=== PATIENT | female | born 1960 | race Caucasian/White ===

== ENCOUNTER 2018-04-06 19:12 | Inpatient (IN) | payer OTHER ==
[~2018-04-06] VITALS: Ht 157.5 cm; Wt 83.7 kg
--- NOTE | 2018-04-06 20:12 | PHYS DOC ---
Past Medical History Past Medical History: No Pertinent History Past Surgical History: Additional Past Surgical Histo: HERNIA Additional Information: QUIT 2016 Alcohol Use: None Drug Use: None Adult General Chief Complaint Chief Complaint: SHORTNESS OF BREATH HPI HPI Patient is a 57 year old female who presents with SOB Patient has been ill with upper respiratory infection over the last 3 weeks. She is given a Z-Benoit 2 weeks ago with some improvement, but this past week she' s had recurrent cough and shortness breath. She's had increased use of her inhaler over the past week. Her shortness breath got worse this afternoon and she came to the emergency permit for further evaluation. She denies any chest pain or fevers. Review of Systems Review of Systems Constitutional: Denies fever or chills Eyes: Denies change in visual acuity, redness, or eye pain HENT: Denies nasal congestion or sore throat Respiratory: With cough and shortness of breath Cardiovascular: Denies chest pain or palpitations GI: Denies abdominal pain, nausea, vomiting, bloody stools or diarrhea : Denies dysuria or hematuria Musculoskeletal: Denies back pain or joint pain Integument: Denies rash or skin lesions Neurologic: Denies headache, focal weakness or sensory changes Endocrine: Denies polyuria or polydipsia All other systems were reviewed and found to be within normal limits, except as documented in this note. Current Medications Current Medications Current Medications Medications (Trade) Dose Ordered Sig/Carlos Start Time Stop Time Status Last Admin Dose Admin Albuterol/ Ipratropium (Duoneb) 3 ml 1X ONCE 04/06/18 20:15 04/06/18 20:16 DC 04/06/18 20:34 3 ML Info (CONTRAST GIVEN -- Rx MONITORING) 1 each PRN DAILY PRN 04/06/18 22:00 04/08/18 21:59 Iohexol (Omnipaque 300 Mg/ml) 75 ml 1X ONCE 04/06/18 22:15 04/06/18 22:16 DC 04/06/18 22:06 75 ML Prednisone (Prednisone) 60 mg 1X ONCE 04/06/18 20:15 04/06/18 20:16 DC 04/06/18 20:20 60 MG Allergies Allergies Allergies Coded Allergies Type Severity Reaction Last Updated Verified codeine Allergy Severe 04/06/18 Yes Physical Exam Physical Exam Constitutional: Well developed, well nourished, no acute distress, non-toxic appearance. HENT: Normocephalic, atraumatic, bilateral external ears normal, oropharynx moist, no oral exudates, nose normal. Eyes: PERRLA, EOMI, conjunctiva normal, no discharge. Neck: Normal range of motion, no tenderness, supple, no stridor. Cardiovascular:Heart rate regular rhythm, no murmur Lungs & Thorax: Bilateral breath sounds with wheezing bilaterally and decreased BS at the bases Abdomen: Bowel sounds normal, soft, no tenderness, no masses, no pulsatile masses. Skin: Warm, dry, no erythema, no rash. Back: No tenderness, no CVA tenderness. Extremities: No tenderness, no cyanosis, no clubbing, ROM intact, no edema. Neurologic: Alert and oriented X 3, normal motor function, normal sensory function, no focal deficits noted. Psychologic: Affect normal, judgement normal, mood normal. Current Patient Data Vital Signs Vital Signs Date Time Temp Pulse Resp B/P (MAP) Pulse Ox O2 Delivery O2 Flow Rate FiO2 04/06/18 21:30 100 21 162/81 (108) 94 Room Air 04/06/18 19:50 98.0 98.0 Lab Values Laboratory Tests Test 04/06/18 19:47 04/06/18 20:17 04/06/18 21:11 Urine Collection Type Unknown Urine Color Yellow Urine Clarity Clear Urine pH 6.0 Urine Specific [place] 1.025 Urine Protein Negative mg/dL (NEG-TRACE) Urine Glucose (UA) >=1000 mg/dL (NEG) Urine Ketones (Stick) Negative mg/dL (NEG) Urine Blood Negative (NEG) Urine Nitrite Negative (NEG) Urine Bilirubin Negative (NEG) Urine Urobilinogen Dipstick 0.2 mg/dL (0.2 mg/dL) Urine Leukocyte Esterase Trace (NEG) Urine RBC 0 /HPF (0-2) Urine WBC 5-10 /HPF (0-4) Urine Squamous Epithelial Cells Few /LPF Urine Bacteria 0 /HPF (0-FEW) White Blood Count 6.8 x10^3/uL (4.0-11.0) Red Blood Count 4.34 x10^6/uL (3.50-5.40) Hemoglobin 13.4 g/dL (12.0-15.5) Hematocrit 39.0 % (36.0-47.0) Mean Corpuscular Volume 90 fL (79-100) Mean Corpuscular Hemoglobin 31 pg (25-35) Mean Corpuscular Hemoglobin Concent 34 g/dL (31-37) Red Cell Distribution Width 13.6 % (11.5-14.5) Platelet Count 245 x10^3/uL (140-400) Neutrophils (%) (Auto) 60 % (31-73) Lymphocytes (%) (Auto) 32 % (24-48) Monocytes (%) (Auto) 5 % (0-9) Eosinophils (%) (Auto) 2 % (0-3) Basophils (%) (Auto) 1 % (0-3) Neutrophils # (Auto) 4.1 x10^3uL (1.8-7.7) Lymphocytes # (Auto) 2.1 x10^3/uL (1.0-4.8) Monocytes # (Auto) 0.4 x10^3/uL (0.0-1.1) Eosinophils # (Auto) 0.1 x10^3/uL (0.0-0.7) Basophils # (Auto) 0.1 x10^3/uL (0.0-0.2) D-Dimer (Katerina) 0.59 ug/mlFEU (0.00-0.50) H Sodium Level 138 mmol/L (136-145) Potassium Level 3.6 mmol/L (3.5-5.1) Chloride Level 102 mmol/L (98-107) Carbon Dioxide Level 28 mmol/L (21-32) Anion Gap 8 (6-14) Blood Urea Nitrogen 10 mg/dL (7-20) Creatinine 0.7 mg/dL (0.6-1.0) Estimated GFR (Cockcroft-Gault) 86.2 Glucose Level 306 mg/dL (70-99) H Calcium Level 8.9 mg/dL (8.5-10.1) Troponin I Quantitative < 0.017 ng/mL (0.000-0.055) JO-Icg-O-Type Natriuretic Peptide 2433 pg/mL (0-124) H Laboratory Tests 04/06/18 20:17 Laboratory Tests 04/06/18 21:11 EKG EKG ECG 19:48 ST @104 with LBBB Radiology/Procedures Radiology/Procedures [facility] [address] [place] [address] IMAGING REPORT Signed PATIENT: JACQUELYN GUEVARA ACCOUNT: [id number] : 1960 LOCATION: ER AGE: 57 SEX: F EXAM STATUS: REG ER ORD. PHYSICIAN: TRAY SUTTON MD REASON: SOB PROCEDURE: CHEST AP ONLY EXAM: CHEST 1 VIEW. HISTORY: Shortness of breath. COMPARISON: None. FINDINGS: A frontal view of the chest is obtained. There are small bilateral pleural effusions with bibasilar atelectasis and mild pulmonary edema. There is no pneumothorax. The heart is mildly enlarged. IMPRESSION: 1. Mild cardiomegaly. Small bilateral pleural effusions. Mild pulmonary edema. Electronically signed by: Nicole Segovia MD (04/06/2018 10:14 PM) [facility] DICTATED and SIGNED BY: MORGAN SEGOVIA MD DATE: 04/06/18 221 [facility] [address] [facility] [place] [address] IMAGING REPORT Signed PATIENT: JACQUELYN GUEVARA ACCOUNT: [id number] : 1960 LOCATION: ER AGE: 57 SEX: F EXAM STATUS: REG ER ORD. PHYSICIAN: TRAY SUTTON MD REASON: SOB PROCEDURE: CT ANGIOGRAPHY CHEST EXAM: CT ANGIOGRAPHY OF THE CHEST WITH AND WITHOUT INTRAVENOUS CONTRAST. HISTORY: Shortness of breath. TECHNIQUE: Computed tomographic angiography of the chest was performed before and after the intravenous administration of 75 mL Omnipaque 300. 3-D maximum intensity projections were also performed. COMPARISON: None. FINDINGS: Images of the upper abdomen reveal mild splenomegaly at 14.4 cm. Bone windows reveal no suspicious lesions. No pulmonary emboli are identified. The main pulmonary artery is mildly enlarged at 3.1 cm. There is no aortic dissection or aneurysm. A lateral aortic lymph node measures 1.6 x 1.1 cm. There are no other clearly enlarged mediastinal, hilar or axillary lymph nodes. The left ventricle is dilated. There is no pericardial effusion. There are small to moderate bilateral pleural effusions with compressive atelectasis in both lower lobes. Mild interstitial line thickening and bronchial wall thickening are consistent with mild pulmonary edema. A nodule in the left major fissure measures 7 x 4 mm and most likely indicates a benign intrafissural lymph node in this location. IMPRESSION: 1. Small to moderate bilateral pleural effusions. Mild pulmonary edema. Left ventricular dilatation. 2. No pulmonary embolism. Findings suggesting pulmonary arterial hypertension. 3. Prominent lateral aortic lymph nodes may be reactive in this setting. Follow-up could be performed in 3-6 months if there is persistent concern. 4. Mild splenomegaly. *One or more of the following individualized dose reduction techniques were utilized for this examination: 1. Automated exposure control. 2. Adjustment of the mA and/or kV according to patient size. 3. Use of iterative reconstruction technique. Electronically signed by: Nicole Segovia MD (04/06/2018 10:14 PM) [facility] DICTATED and SIGNED BY: MORGAN SEGOVIA MD DATE: 04/06/182208 Course & Med Decision Making Course & Med Decision Making Pertinent Labs and Imaging studies reviewed. (See chart for details) Emergency Department Course Patient presents with SOB DDx- COPD exacerbation, asthma, CHF, PNA, PE The patient was stable in the ED. ECG and troponin showed no evidence of ACS. patient has LBBB. 22:50 Patient improved after DuoNeb and prednisone. Chest x-ray showed bilateral pleural effusions. D-dimer elevated. CTA chest showed no PE with bilateral pleural effusions and pulmonary edema. Patient has no prior history of CHF. BNP elevated. Patient was given Lasix IV. 22:[address] Pedroza who agreed with admission Dragon Disclaimer Draglandon Disclaimer This electronic medical record was generated, in whole or in part, using a voice recognition dictation system. Departure Departure Impression: Primary Impression: Acute exacerbation of CHF (congestive heart failure) Additional Impressions: COPD with exacerbation Hyperglycemia Disposition: 09 ADMITTED INPATIENT Admitting Physician: Janie Pedroza Condition: STABLE Referrals: NO PCP (PCP) Problem Qualifiers TRAY SUTTON MD Apr 06, 2018 20:12
[2018-04-06] MEDS ORDERED: predniSONE 20 MG TABLET PO ONE (20:15)
[2018-04-06] MEDS ORDERED: IPRATRPIUM/ALBUTEROL 0.5/2.5MG 3 ML NEBU. NEB ONE (20:15)
[2018-04-06 20:28] LABS: BASO # 0.1 x10^3/uL (0.0-0.2); BASO % 1 % (0-3); EOS # 0.1 x10^3/uL (0.0-0.7); EOS % 2 % (0-3); HEMOGLOBIN 13.4 g/dL (12.0-15.5); LYMPH # 2.1 x10^3/uL (1.0-4.8); LYMPH % 32 % (24-48); MEAN CORPUSCULAR HEMOGLOBIN 31 pg (25-35); MEAN CORPUSCULAR HGB CONC 34 g/dL (31-37); MEAN CORPUSCULAR VOLUME 90 fL (79-100); MONO # 0.4 x10^3/uL (0.0-1.1); MONO % 5 % (0-9); NEUT # 4.1 x10^3uL (1.8-7.7); NEUT % 60 % (31-73); PLATELET COUNT 245 x10^3/uL (140-400); RED BLOOD COUNT 4.34 x10^6/uL (3.50-5.40); RED CELL DISTRIBUTION WIDTH 13.6 % (11.5-14.5); WHITE BLOOD COUNT 6.8 x10^3/uL (4.0-11.0)
[2018-04-06 20:50] LABS: BILIRUBIN,URINE NEGATIVE (NEG); CLARITY,URINE CLEAR; COLOR,URINE YELLOW; NITRITE,URINE NEGATIVE (NEG); PROTEIN,URINE NEGATIVE (NEG-TRACE); UROBILINOGEN,URINE 0.2 mg/dL (0.2 mg/dL)
--- NOTE | 2018-04-06 20:50 | EKG ---
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
[2018-04-06 20:58] LABS: BACTERIA,URINE 0 /HPF (0-FEW); RBC,URINE 0 /HPF (0-2); SQUAMOUS EPITHELIAL CELL,UR FEW /LPF
[2018-04-06 21:30] LABS: CALCIUM 8.9 mg/dL (8.5-10.1); CREATININE 0.7 mg/dL (0.6-1.0); GFR 86.2; POTASSIUM 3.6 mmol/L (3.5-5.1)
[2018-04-06] MEDS ORDERED: CONTRAST GIVEN. MC PRN (22:00)
[2018-04-06] MEDS ORDERED: IOHEXOL 300 MG/ML 100ML VIAL. IV ONE (22:15)
--- NOTE | 2018-04-06 22:17 | RAD ---
EXAM: CHEST 1 VIEW. HISTORY: Shortness of breath. COMPARISON: None. FINDINGS: A frontal view of the chest is obtained. There are small bilateral pleural effusions with bibasilar atelectasis and mild pulmonary edema. There is no pneumothorax. The heart is mildly enlarged. IMPRESSION: 1. Mild cardiomegaly. Small bilateral pleural effusions. Mild pulmonary edema. Electronically signed by: Nicole Segovia MD (04/06/2018 10:14 PM) [facility]
--- NOTE | 2018-04-06 22:17 | RAD ---
EXAM: CT ANGIOGRAPHY OF THE CHEST WITH AND WITHOUT INTRAVENOUS CONTRAST. HISTORY: Shortness of breath. TECHNIQUE: Computed tomographic angiography of the chest was performed before and after the intravenous administration of 75 mL Omnipaque 300. 3-D maximum intensity projections were also performed. COMPARISON: None. FINDINGS: Images of the upper abdomen reveal mild splenomegaly at 14.4 cm. Bone windows reveal no suspicious lesions. No pulmonary emboli are identified. The main pulmonary artery is mildly enlarged at 3.1 cm. There is no aortic dissection or aneurysm. A lateral aortic lymph node measures 1.6 x 1.1 cm. There are no other clearly enlarged mediastinal, hilar or axillary lymph nodes. The left ventricle is dilated. There is no pericardial effusion. There are small to moderate bilateral pleural effusions with compressive atelectasis in both lower lobes. Mild interstitial line thickening and bronchial wall thickening are consistent with mild pulmonary edema. A nodule in the left major fissure measures 7 x 4 mm and most likely indicates a benign intrafissural lymph node in this location. IMPRESSION: 1. Small to moderate bilateral pleural effusions. Mild pulmonary edema. Left ventricular dilatation. 2. No pulmonary embolism. Findings suggesting pulmonary arterial hypertension. 3. Prominent lateral aortic lymph nodes may be reactive in this setting. Follow-up could be performed in 3-6 months if there is persistent concern. 4. Mild splenomegaly. *One or more of the following individualized dose reduction techniques were utilized for this examination: 1. Automated exposure control. 2. Adjustment of the mA and/or kV according to patient size. 3. Use of iterative reconstruction technique. Electronically signed by: Nicole Segovia MD (04/06/2018 10:14 PM) [facility]
[2018-04-06] MEDS ORDERED: FUROSEMIDE 40 MG/4 ML VIAL. IVP ONE (23:30)
[2018-04-07] VITALS (16 sets, daily range): BP systolic 101–172; BP diastolic 56–101
[2018-04-07] MEDS ORDERED: INSULIN REGULAR 100 UNIT/ML 3ML VIAL. IV ONE
[2018-04-07] MEDS ORDERED: ACETAMINOPHEN 325 MG TABLET. PO PRN
[2018-04-07] MEDS: IPRATRPIUM/ALBUTEROL 0.5/2.5MG 3 ML NEBU. NEB SCH ×4 (07:38→20:15)
[2018-04-07] MEDS ORDERED: ONDANSETRON PF 4 MG/2 ML VIAL. IV PRN (08:00)
[2018-04-07] MEDS ORDERED: ONDANSETRON ODT 4 MG TAB.RAPDIS. PO PRN (08:00)
[2018-04-07] MEDS ORDERED: LABETALOL 20 MG/4 ML DISP.SYRIN. IVP PRN (08:00)
[2018-04-07] MEDS ORDERED: guaiFENesin DM 200MG/20MG 10 ML SYRUP PO PRN (08:00)
[2018-04-07 08:18] LABS: CALCIUM 9.2 mg/dL (8.5-10.1); CREATININE 0.7 mg/dL (0.6-1.0); GFR 86.2; MAGNESIUM 1.8 mg/dL (1.8-2.4); POTASSIUM 3.9 mmol/L (3.5-5.1)
[2018-04-07 08:20] LABS: CHOLESTEROL/HDL RATIO 3.6
[2018-04-07] MEDS ORDERED: ASPIRIN 325 MG TABLET PO ONE (08:45)
--- NOTE | 2018-04-07 08:59 | PDOC2 ---
GAYLA GRESHAM TOURIST INFORMATION OFFICER 04/07/18 0859: CARDIAC CONSULT DATE OF CONSULT Date of Consult DATE: 04/07/18 TIME: 08:38 REASON FOR CONSULT Reason for Consult: CHF exacerbation, COPD exacerbation REFERRING PHYSICIAN Referring Physician: Nain SOURCE Source: Chart review, Patient HISTORY OF PRESENT ILLNESS HISTORY OF PRESENT ILLNESS This is a pleasant 57 yo female admitted for complains of SOA and chest pain. Reports that she started having exertional chest tightness intermittent about 2 weeks ago. She also started having COOL 2 weeks ago. She did start having nasal congestion and appers to be post nasal drip then with productive cough at times greenish secretions. No fever or chills. she was started on zithromax last week and finished it this Wednesday. Her congestion got better Wednesday but her SOA, chest tightness did not go away. Reports occasional palpitations and dizziness and leg edema. No nausea or vomiting. Recently had diarrhea post antibiotic therapy. Positive for orthopnea and PND. Denies any past CAD arrhythmia, CAD, VTE nor FELIX. No recent falls or any injury and no routine NSAIDs and no routine medications at all and has not seen any PCP in a very long time. Presently she is better after lasix and steroids. PAST MEDICAL HISTORY Past Medical History No pertinent history PAST SURGICAL HISTORY Past Surgical History: , Hernia Repair, Other (I & D left groin) FAMILY HISTORY Family History: Coronary Artery Disease (father in 70s sister CABG at 56) SOCIAL HISTORY Smoke: Quit (>30 pk yr quit 10/2015) ALCOHOL: occassional Drugs: None Lives: with Family CURRENT MEDICATIONS CURRENT MEDICATIONS Current Medications Medications (Trade) Dose Ordered Sig/Carlos Route PRN Reason Start Time Stop Time Status Last Admin Dose Admin Albuterol/ Ipratropium (Duoneb) 3 ml 1X ONCE NEB 04/06/18 20:15 04/06/18 20:16 DC 04/06/18 20:34 Prednisone (Prednisone) 60 mg 1X ONCE PO 04/06/18 20:15 04/06/18 20:16 DC 04/06/18 20:20 Iohexol (Omnipaque 300 Mg/ml) 75 ml 1X ONCE IV 04/06/18 22:15 04/06/18 22:16 DC 04/06/18 22:06 Furosemide (Lasix) 40 mg 1X ONCE IVP 04/06/18 23:30 04/06/18 23:31 DC 04/06/18 23:55 Insulin Human Regular (HumuLIN R VIAL) 6 unit 1X ONCE IV 04/07/18 00:00 04/07/18 00:01 DC 04/07/18 00:04 Albuterol/ Ipratropium (Duoneb) 3 ml RTQID NEB 04/07/18 08:00 04/08/18 07:59 04/07/18 07:38 ALLERGIES ALLERGIES: Coded Allergies: codeine (Verified Allergy, Severe, 04/06/18) SKIN CRAWLING ROS Review of System 14 point ROS evaluated with pertinent positives noted per HPI PHYSICAL EXAM General: Alert, Oriented X3, Cooperative, No acute distress HEENT: Atraumatic, Mucous membr. moist/pink Lungs: Other (basilar crackles) Heart: Regular rate (sinus tach), Normal S1, Normal S2, Other (2/6 ssytolic murmur to LLS border; S3) Abdomen: Soft, No tenderness Extremities: No cyanosis, Other (trace LE) Skin: No breakdown, No significant lesion Neuro: Normal speech, Sensation intact Psych/Mental Status: Mental status NL, Mood NL MUSCULOSKELETAL: Osteoarthritic changes both hands VITALS VITALS Vital Signs Date Time Temp Pulse Resp B/P (MAP) Pulse Ox O2 Delivery O2 Flow Rate FiO2 04/07/18 07:40 94 Room Air 04/07/18 07:00 96.3 96 20 148/72 (97) 96.3 LABS Lab: Laboratory Tests Test 04/06/18 19:47 04/06/18 20:17 04/06/18 21:11 04/07/18 06:00 Urine Collection Type Unknown Urine Color Yellow Urine Clarity Clear Urine pH 6.0 Urine Specific [place] 1.025 Urine Protein Negative mg/dL (NEG-TRACE) Urine Glucose (UA) >=1000 mg/dL (NEG) Urine Ketones (Stick) Negative mg/dL (NEG) Urine Blood Negative (NEG) Urine Nitrite Negative (NEG) Urine Bilirubin Negative (NEG) Urine Urobilinogen Dipstick 0.2 mg/dL (0.2 mg/dL) Urine Leukocyte Esterase Trace (NEG) Urine RBC 0 /HPF (0-2) Urine WBC 5-10 /HPF (0-4) Urine Squamous Epithelial Cells Few /LPF Urine Bacteria 0 /HPF (0-FEW) White Blood Count 6.8 x10^3/uL (4.0-11.0) Red Blood Count 4.34 x10^6/uL (3.50-5.40) Hemoglobin 13.4 g/dL (12.0-15.5) Hematocrit 39.0 % (36.0-47.0) Mean Corpuscular Volume 90 fL (79-100) Mean Corpuscular Hemoglobin 31 pg (25-35) Mean Corpuscular Hemoglobin Concent 34 g/dL (31-37) Red Cell Distribution Width 13.6 % (11.5-14.5) Platelet Count 245 x10^3/uL (140-400) Neutrophils (%) (Auto) 60 % (31-73) Lymphocytes (%) (Auto) 32 % (24-48) Monocytes (%) (Auto) 5 % (0-9) Eosinophils (%) (Auto) 2 % (0-3) Basophils (%) (Auto) 1 % (0-3) Neutrophils # (Auto) 4.1 x10^3uL (1.8-7.7) Lymphocytes # (Auto) 2.1 x10^3/uL (1.0-4.8) Monocytes # (Auto) 0.4 x10^3/uL (0.0-1.1) Eosinophils # (Auto) 0.1 x10^3/uL (0.0-0.7) Basophils # (Auto) 0.1 x10^3/uL (0.0-0.2) D-Dimer (Katerina) 0.59 ug/mlFEU (0.00-0.50) Sodium Level 138 mmol/L (136-145) 139 mmol/L (136-145) Potassium Level 3.6 mmol/L (3.5-5.1) 3.9 mmol/L (3.5-5.1) Chloride Level 102 mmol/L (98-107) 99 mmol/L (98-107) Carbon Dioxide Level 28 mmol/L (21-32) 26 mmol/L (21-32) Anion Gap 8 (6-14) 14 (6-14) Blood Urea Nitrogen 10 mg/dL (7-20) 13 mg/dL (7-20) Creatinine 0.7 mg/dL (0.6-1.0) 0.7 mg/dL (0.6-1.0) Estimated GFR (Cockcroft-Gault) 86.2 86.2 Glucose Level 306 mg/dL (70-99) 450 mg/dL (70-99) Calcium Level 8.9 mg/dL (8.5-10.1) 9.2 mg/dL (8.5-10.1) Troponin I Quantitative < 0.017 ng/mL (0.000-0.055) < 0.017 ng/mL (0.000-0.055) YN-Qex-W-Type Natriuretic Peptide 2433 pg/mL (0-124) Magnesium Level 1.8 mg/dL (1.8-2.4) Triglycerides Level 64 mg/dL (0-150) Cholesterol Level 167 mg/dL (0-200) LDL Cholesterol, Calculated 108 mg/dL (0-100) VLDL Cholesterol, Calculated 13 mg/dL (0-40) Non-HDL Cholesterol Calculated 121 mg/dL (0-129) HDL Cholesterol 46 mg/dL (40-60) Cholesterol/HDL Ratio 3.6 Test 04/07/18 07:44 Glucose (Fingerstick) 375 mg/dL (70-99) ASSESSMENT/PLAN ASSESSMENT/PLAN 1. Acute CHF with possibly combined diastolic/systolic dysfunction 2. Chest pain: typical features for UA. 3. LBBB: New. no prior for comparison. Trop series nml. 4. AECOPD: new. post z-pack. Quit smoking 2 yrs ago. 30 pk yr. Per pulmonary 5. HTN: new 6. DM2: new. Per PCP 7. HLP: new 8. Family hx of CAD: sister CABG at 56 yo. Recommendations 1. Pretest CAD probability high. [facility] today, risks and benefits explained and agreeable to proceed. 2. Post [facility] will start on ACEi and BB pending BP trend. ASA. Statin 3. Continue with lasix therapy. 4. TSH, A1C, lipids. TTE. NATE YIN MD 04/07/18 1256: CARDIAC CONSULT ASSESSMENT/PLAN ASSESSMENT/PLAN Patient seen and examined. Agree with PRECIPITATION EQUIPMENT TENDER's assessment and plan. Continue diuresis for acute on chronic diastolic heart failure Chest pain with features concerning for unstable angina Plan for cardiac catheterization and possible angioplasty Continue current treatment for acute COPD exacerbation per pulmonary team Thank you for your consultation GAYLA GRESHAM APRN Apr 07, 2018 08:59 NATE YIN MD Apr 07, 2018 12:56
[2018-04-07] MEDS ORDERED: INSULIN LISPRO 100 UNIT/ML 3ML VIAL. SQ ONE (09:15)
[2018-04-07] MEDS ORDERED: DEXTROSE 50% 25 GM / 50ML DISP.SYRIN. IV PRN (09:15)
[2018-04-07 09:28] LABS: ALBUMIN 3.5 g/dL (3.4-5.0); DIRECT BILIRUBIN 0.2 mg/dL (0.0-0.2); TOTAL PROTEIN 6.9 g/dL (6.4-8.2)
[2018-04-07] MEDS ORDERED: INSULIN LISPRO 300 UNITS/3 ML INSULN.PEN. SQ ONE ×2 (09:30→23:00)
[2018-04-07] MEDS: METOPROLOL SUCC 24HR ER 50 MG TAB.ER.24H. PO SCH (09:50)
--- NOTE | 2018-04-07 10:02 | PDOC1 ---
History and Physical Date of Admission Date of Admission DATE: 04/07/18 TIME: 09:56 Identification/Chief Complaint Chief Complaint SOA Source Source: Caregiver, Chart review, Patient History of Present Illness History of Present Illness This is a pleasant 57 yo female is not on any meds and has not seen a doctor for many years, came to the emergency room because of SOA and chest pain, intermittent about 2 weeks ago. She also sounds to have some URI symptoms, postnasal discharge. Finished a course of Zithromax. Also complains of some leg edema and chest tightness that did not go away. NOt better post abx. Called by RN because of blood sugar 350s, no known diabetes, not on any meds. Plans were LHC by cardiology. Echo also done, results still pending. She is very anxious and is crying. Teary-eyed worried about her overall health. Blood pressure on the high side, he dimer mildly elevated 0.59. CBC is okay, BNP elevated at 2400 Past Medical History Cardiovascular: No pertinent hx Pulmonary: No pertinent hx GI: No pertinent hx Heme/Onc: No pertinent hx Hepatobiliary: No pertinent hx Psych: No pertinent hx Rheumatologic: No pertinent hx Infectious disease: No pertinent hx ENT: No pertinent hx Renal/: No pertinent hx Endocrine: No pertinent hx Past Surgical History Past Surgical History: , Hernia Repair, Other (I & D left groin) Family History Family History: Coronary Artery Disease (father in 70s sister CABG at 56) Social History Smoke: Quit (>30 pk yr quit 10/2015) ALCOHOL: occassional Drugs: None Current Problem List Problem List Problems Medical Problems: (1) Acute exacerbation of CHF (congestive heart failure) Status: Acute (2) COPD with exacerbation Status: Acute (3) Hyperglycemia Status: Acute Current Medications Current Medications Current Medications Albuterol/ Ipratropium (Duoneb) 3 ml 1X ONCE NEB Last administered on at 20:34; Start 04/06/18 at 20:15; Stop 04/06/18 at 20:16; Status DC Prednisone (Prednisone) 60 mg 1X ONCE PO Last administered on 04/06/18at 20:20 ; Start 04/06/18 at 20:15; Stop 04/06/18 at 20:16; Status DC Iohexol (Omnipaque 300 Mg/ml) 75 ml 1X ONCE IV Last administered on at 22:06; Start 04/06/18 at 22:15; Stop 04/06/18 at 22:16; Status DC Info (CONTRAST GIVEN -- Rx MONITORING) 1 each PRN DAILY PRN MC SEE COMMENTS; Start 04/06/18 at 22:00; Stop 04/08/18 at 21:59 Furosemide (Lasix) 40 mg 1X ONCE IVP Last administered on 04/06/18at 23:55; Start 04/06/18 at 23:30; Stop 04/06/18 at 23:31; Status DC Insulin Human Regular (HumuLIN R VIAL) 6 unit 1X ONCE IV Last administered on 04/07/18at 00:04; Start 04/07/18 at 00:00; Stop 04/07/18 at 00:01; Status DC Acetaminophen (Tylenol) 650 mg PRN Q4HRS PRN PO FEVER; Start 04/07/18 at 00:00 ; Stop 04/07/18 at 23:59 Albuterol/ Ipratropium (Duoneb) 3 ml RTQID NEB Last administered on 04/07/18at 07:38; Start 04/07/18 at 08:00; Stop 04/08/18 at 07:59 Influenza Virus Vaccine (Afluria Trivalent [id number] Syringe) 0.5 ml ONCE ONCE VAX IM ; Start 04/07/18 at 09:00; Stop 04/07/18 at 09:01; Status DC Guaifenesin (Robitussin Dm) 10 ml PRN Q6HRS PRN PO COUGH; Start 04/07/18 at 08 :00 Ondansetron HCl (Zofran) 4 mg PRN Q6HRS PRN IV NAUSEA/VOMITING 1ST CHOICE; Start 04/07/18 at 08:00 Ondansetron HCl (Zofran Odt) 4 mg PRN Q6HRS PRN PO NAUSEA/VOMITING 1ST CHOICE; Start 04/07/18 at 08:00 Labetalol HCl (Normodyne Iv Push) 20 mg PRN Q2HR PRN IVP HYPERTENSION, SEE COMMENTS; Start 04/07/18 at 08:00 Aspirin (Dorys Aspirin) 325 mg 1X ONCE PO Last administered on 04/07/18at 09: 49; Start 04/07/18 at 08:45; Stop 04/07/18 at 08:46; Status DC Metoprolol Succinate (Toprol Xl) 50 mg DAILY PO Last administered on at 09:50; Start 04/07/18 at 09:00 Atorvastatin Calcium (Lipitor) 40 mg QHS PO ; Start 04/07/18 at 21:00 Furosemide (Lasix) 40 mg DAILY IVP ; Start 04/07/18 at 09:15 Insulin Human Lispro (HumaLOG VIAL) 12 unit 1X ONCE SQ ; Start 04/07/18 at 09: 15; Stop 04/07/18 at 09:16; Status UNV Insulin Human Lispro (HumaLOG) 0-9 UNITS TIDWMEALS SQ ; Start 04/07/18 at 12:00 Dextrose (Dextrose 50%-Water Syringe) 12.5 gm PRN Q15MIN PRN IV SEE COMMENTS; Start 04/07/18 at 09:15 Insulin Human Lispro (HumaLOG) 12 units ONCE ONCE SQ ; Start 04/07/18 at 09:30 ; Stop 04/07/18 at 09:31; Status DC Allergies Allergies: Coded Allergies: codeine (Verified Allergy, Severe, 04/06/18) SKIN CRAWLING ROS Review of System As per history of present illness, the rest of ROS 14 point negative Physical Exam General: Other (crying mildly anxious on my visit but not in acute distress) HEENT: PERRLA Lungs: Clear to auscultation, Normal air movement Heart: S1S2, RRR, no thrills, no rubs, no gallops, no murmurs Cardiovascular: S1, S2 Breasts: Normal, Rt breast nml w/o mass, Lt breast nml w/o mass, Nipples normal Abdomen: Normal bowel sounds, Soft, No tenderness, No hepatosplenomegaly, No masses Rectal Exam: not examined PELVIC: Nml ext genitalia Extremities: No clubbing, No cyanosis, No edema, Normal pulses, No tenderness/ swelling Skin: No rashes, No breakdown, No significant lesion Neuro: Normal gait, Normal speech, Strength at 5/5 X4 ext, Normal tone, Sensation intact, Cranial nerves 3-12 NL, Reflexes 2+ Psych/Mental Status: Mental status NL, Mood NL Vitals Vitals Vital Signs Date Time Temp Pulse Resp B/P (MAP) Pulse Ox O2 Delivery O2 Flow Rate FiO2 04/07/18 09:50 96 151/74 04/07/18 07:40 94 Room Air 04/07/18 07:00 96.3 20 96.3 Labs Labs Laboratory Tests Test 04/06/18 19:47 04/06/18 20:17 04/06/18 21:11 04/07/18 06:00 Urine Collection Type Unknown Urine Color Yellow Urine Clarity Clear Urine pH 6.0 Urine Specific [place] 1.025 Urine Protein Negative mg/dL (NEG-TRACE) Urine Glucose (UA) >=1000 mg/dL (NEG) Urine Ketones (Stick) Negative mg/dL (NEG) Urine Blood Negative (NEG) Urine Nitrite Negative (NEG) Urine Bilirubin Negative (NEG) Urine Urobilinogen Dipstick 0.2 mg/dL (0.2 mg/dL) Urine Leukocyte Esterase Trace (NEG) Urine RBC 0 /HPF (0-2) Urine WBC 5-10 /HPF (0-4) Urine Squamous Epithelial Cells Few /LPF Urine Bacteria 0 /HPF (0-FEW) White Blood Count 6.8 x10^3/uL (4.0-11.0) Red Blood Count 4.34 x10^6/uL (3.50-5.40) Hemoglobin 13.4 g/dL (12.0-15.5) Hematocrit 39.0 % (36.0-47.0) Mean Corpuscular Volume 90 fL (79-100) Mean Corpuscular Hemoglobin 31 pg (25-35) Mean Corpuscular Hemoglobin Concent 34 g/dL (31-37) Red Cell Distribution Width 13.6 % (11.5-14.5) Platelet Count 245 x10^3/uL (140-400) Neutrophils (%) (Auto) 60 % (31-73) Lymphocytes (%) (Auto) 32 % (24-48) Monocytes (%) (Auto) 5 % (0-9) Eosinophils (%) (Auto) 2 % (0-3) Basophils (%) (Auto) 1 % (0-3) Neutrophils # (Auto) 4.1 x10^3uL (1.8-7.7) Lymphocytes # (Auto) 2.1 x10^3/uL (1.0-4.8) Monocytes # (Auto) 0.4 x10^3/uL (0.0-1.1) Eosinophils # (Auto) 0.1 x10^3/uL (0.0-0.7) Basophils # (Auto) 0.1 x10^3/uL (0.0-0.2) D-Dimer (Katerina) 0.59 ug/mlFEU (0.00-0.50) Sodium Level 138 mmol/L (136-145) 139 mmol/L (136-145) Potassium Level 3.6 mmol/L (3.5-5.1) 3.9 mmol/L (3.5-5.1) Chloride Level 102 mmol/L (98-107) 99 mmol/L (98-107) Carbon Dioxide Level 28 mmol/L (21-32) 26 mmol/L (21-32) Anion Gap 8 (6-14) 14 (6-14) Blood Urea Nitrogen 10 mg/dL (7-20) 13 mg/dL (7-20) Creatinine 0.7 mg/dL (0.6-1.0) 0.7 mg/dL (0.6-1.0) Estimated GFR (Cockcroft-Gault) 86.2 86.2 Glucose Level 306 mg/dL (70-99) 450 mg/dL (70-99) Calcium Level 8.9 mg/dL (8.5-10.1) 9.2 mg/dL (8.5-10.1) Troponin I Quantitative < 0.017 ng/mL (0.000-0.055) < 0.017 ng/mL (0.000-0.055) NC-Zxq-Y-Type Natriuretic Peptide 2433 pg/mL (0-124) Magnesium Level 1.8 mg/dL (1.8-2.4) Total Bilirubin 1.0 mg/dL (0.2-1.0) Direct Bilirubin 0.2 mg/dL (0.0-0.2) Aspartate Amino Transf (AST/SGOT) 20 U/L (15-37) Alanine Aminotransferase (ALT/SGPT) 42 U/L (14-59) Alkaline Phosphatase 95 U/L (46-116) Total Protein 6.9 g/dL (6.4-8.2) Albumin 3.5 g/dL (3.4-5.0) Triglycerides Level 64 mg/dL (0-150) Cholesterol Level 167 mg/dL (0-200) LDL Cholesterol, Calculated 108 mg/dL (0-100) VLDL Cholesterol, Calculated 13 mg/dL (0-40) Non-HDL Cholesterol Calculated 121 mg/dL (0-129) HDL Cholesterol 46 mg/dL (40-60) Cholesterol/HDL Ratio 3.6 Thyroid Stimulating Hormone (TSH) 1.340 uIU/mL (0.358-3.74) Test 04/07/18 07:44 Glucose (Fingerstick) 375 mg/dL (70-99) Laboratory Tests Test 04/06/18 19:47 04/06/18 20:17 04/06/18 21:11 04/07/18 06:00 Urine Collection Type Unknown Urine Color Yellow Urine Clarity Clear Urine pH 6.0 Urine Specific [place] 1.025 Urine Protein Negative mg/dL (NEG-TRACE) Urine Glucose (UA) >=1000 mg/dL (NEG) Urine Ketones (Stick) Negative mg/dL (NEG) Urine Blood Negative (NEG) Urine Nitrite Negative (NEG) Urine Bilirubin Negative (NEG) Urine Urobilinogen Dipstick 0.2 mg/dL (0.2 mg/dL) Urine Leukocyte Esterase Trace (NEG) Urine RBC 0 /HPF (0-2) Urine WBC 5-10 /HPF (0-4) Urine Squamous Epithelial Cells Few /LPF Urine Bacteria 0 /HPF (0-FEW) White Blood Count 6.8 x10^3/uL (4.0-11.0) Red Blood Count 4.34 x10^6/uL (3.50-5.40) Hemoglobin 13.4 g/dL (12.0-15.5) Hematocrit 39.0 % (36.0-47.0) Mean Corpuscular Volume 90 fL (79-100) Mean Corpuscular Hemoglobin 31 pg (25-35) Mean Corpuscular Hemoglobin Concent 34 g/dL (31-37) Red Cell Distribution Width 13.6 % (11.5-14.5) Platelet Count 245 x10^3/uL (140-400) Neutrophils (%) (Auto) 60 % (31-73) Lymphocytes (%) (Auto) 32 % (24-48) Monocytes (%) (Auto) 5 % (0-9) Eosinophils (%) (Auto) 2 % (0-3) Basophils (%) (Auto) 1 % (0-3) Neutrophils # (Auto) 4.1 x10^3uL (1.8-7.7) Lymphocytes # (Auto) 2.1 x10^3/uL (1.0-4.8) Monocytes # (Auto) 0.4 x10^3/uL (0.0-1.1) Eosinophils # (Auto) 0.1 x10^3/uL (0.0-0.7) Basophils # (Auto) 0.1 x10^3/uL (0.0-0.2) D-Dimer (Katerina) 0.59 ug/mlFEU (0.00-0.50) Sodium Level 138 mmol/L (136-145) 139 mmol/L (136-145) Potassium Level 3.6 mmol/L (3.5-5.1) 3.9 mmol/L (3.5-5.1) Chloride Level 102 mmol/L (98-107) 99 mmol/L (98-107) Carbon Dioxide Level 28 mmol/L (21-32) 26 mmol/L (21-32) Anion Gap 8 (6-14) 14 (6-14) Blood Urea Nitrogen 10 mg/dL (7-20) 13 mg/dL (7-20) Creatinine 0.7 mg/dL (0.6-1.0) 0.7 mg/dL (0.6-1.0) Estimated GFR (Cockcroft-Gault) 86.2 86.2 Glucose Level 306 mg/dL (70-99) 450 mg/dL (70-99) Calcium Level 8.9 mg/dL (8.5-10.1) 9.2 mg/dL (8.5-10.1) Troponin I Quantitative < 0.017 ng/mL (0.000-0.055) < 0.017 ng/mL (0.000-0.055) VN-Iaq-X-Type Natriuretic Peptide 2433 pg/mL (0-124) Magnesium Level 1.8 mg/dL (1.8-2.4) Total Bilirubin 1.0 mg/dL (0.2-1.0) Direct Bilirubin 0.2 mg/dL (0.0-0.2) Aspartate Amino Transf (AST/SGOT) 20 U/L (15-37) Alanine Aminotransferase (ALT/SGPT) 42 U/L (14-59) Alkaline Phosphatase 95 U/L (46-116) Total Protein 6.9 g/dL (6.4-8.2) Albumin 3.5 g/dL (3.4-5.0) Triglycerides Level 64 mg/dL (0-150) Cholesterol Level 167 mg/dL (0-200) LDL Cholesterol, Calculated 108 mg/dL (0-100) VLDL Cholesterol, Calculated 13 mg/dL (0-40) Non-HDL Cholesterol Calculated 121 mg/dL (0-129) HDL Cholesterol 46 mg/dL (40-60) Cholesterol/HDL Ratio 3.6 Thyroid Stimulating Hormone (TSH) 1.340 uIU/mL (0.358-3.74) Test 04/07/18 07:44 Glucose (Fingerstick) 375 mg/dL (70-99) VTE Prophylaxis Ordered VTE Prophylaxis Devices: Yes VTE Pharmacological Prophylaxi: Yes Assessment/Plan Assessment/Plan Accel hypertension POA- anti BP meds, when necessary, if this remains an issue will need BP regimen on discharge Possibly acute viral syndrome-postnasal drip etc Chest tightness/chest pain- sec to above Likely undiagnosed diabetes with elevated blood sugar-check hemoglobin A1c, slight scale insulin high-dose NovoLog or lispro 15 units 1 now ANxiety NOS MOderate bilateral pleural effusion Plan: Agree with [facility] in this chest pain who has not seen a doctor for yrs and possibly undiagnosed diabetes Follow up echo results Check hgba1c SSI high dose ACHS Supportive meds Check lipid panel Recheck labs tomorrow Address high blood pressure with when necessary's-if this remained an issue will need anti-BP regimen on discharge I did consult pulmo re the moderate bilateral pleural effusion Dw her TREVOR LOERA MD Apr 07, 2018 10:02
[2018-04-07] MEDS ORDERED: LIDOCAINE 1% PF 2 ML VIAL. ONE (10:07)
[2018-04-07] MEDS ORDERED: IODIXANOL 320 MG/ML 100 ML VIAL. ONE (10:07)
--- NOTE | 2018-04-07 10:54 | CARD ---
MR#: [id number] Date of Study: 04/07/2018 Ordering Physician: GAYLA GRESHAM, Referring Physician: DUSTIN LOPEZ Tech: Stormy Dalregi APPROVED REPORT EXAM: Two-dimensional and M-mode echocardiogram with Doppler and color Doppler. Other Information Quality : Average INDICATION Congestive Heart Failure 2D DIMENSIONS RVDd2.2 (2.9-3.5cm)Left Atrium(2D)3.1 (1.6-4.0cm) IVSd1.0 (0.7-1.1cm)Aortic Root(2D)3.5 (2.0-3.7cm) LVDd5.6 (3.9-5.9cm)LVOT Diameter2.0 (1.8-2.4cm) PWd1.3 (0.7-1.1cm)LVDs3.9 (2.5-4.0cm) FS (%) 29.4 %SV84.6 ml Aortic Valve AoV Peak Greyson.138.4cm/sAoV VTI22.2cm AO Peak GR.7.7mmHgLVOT Peak Greyson.90.4cm/s LVOT VTI 17.13cmAO Mean GR.5mmHg HUGO (VMAX)1.95jq6CTW (VTI)2.51cm2 Pulmonary Valve PV Peak Htgxpvac916.0cm/sPV Peak Grad.7mmHg Tricuspid Valve RAP [id number] Peak Gr.19mmHg [id number] Pulmonary Vein S1 Jrtxmhxi62.5cm/sD2 Yubdfgcz87.7cm/s PVa [id number] LEFT VENTRICLE The Left Ventricle is mildly dilated. There is borderline concentric left ventricular hypertrophy. Le ft ventricle is moderately impaired. The Ejection Fraction is 30-35%. There is global hypokinesis of the left ventricle. Transmitral Doppler flow pattern is Grade II-pseudonormal filling dynamics. RIGHT VENTRICLE The right ventricle is normal size. There is normal right ventricular wall thickness. The right ventr icular systolic function is normal. ATRIA The left atrium size is normal. The right atrium size is normal. The interatrial septum is intact wit h no evidence for an atrial septal defect or patent foramen ovale as noted on 2-D or Doppler imaging. AORTIC VALVE The aortic valve is normal in structure and function. Doppler and Color Flow revealed trace aortic re gurgitation. There is no significant aortic valvular stenosis. MITRAL VALVE The mitral valve is normal in structure and function. There is no mitral valve stenosis. Doppler and Color-flow revealed mild to moderate mitral regurgitation. TRICUSPID VALVE The tricuspid valve is normal in structure and function. Doppler and Color Flow revealed mild tricusp id regurgitation. PULMONIC VALVE The pulmonic valve is not well visualized. Doppler and Color Flow revealed no pulmonic valvular regur gitation. GREAT VESSELS The aortic root is normal in size. The IVC is dilated and collapses <50% with inspiration. PERICARDIAL EFFUSION There is no evidence of significant pericardial effusion. Critical Notification Critical Value: No <Conclusion> The Left Ventricle is mildly dilated. Left ventricle is moderately impaired. The Ejection Fraction is 30-35%. There is global hypokinesis of the left ventricle. There is borderline concentric left ventricular hypertrophy. There is no significant aortic valvular stenosis. Doppler and Color Flow revealed trace aortic regurgitation. Doppler and Color-flow revealed mild to moderate mitral regurgitation. Doppler and Color Flow revealed mild tricuspid regurgitation. Signed by : Gigi Ortiz MD Electronically Approved : 04/07/2018 10:53:59
[2018-04-07] MEDS ORDERED: fentaNYL PF VIAL 100 MCG/2 ML VIAL ONE (10:55)
[2018-04-07] MEDS ORDERED: VERAPAMIL 5 MG/2 ML VIAL. ONE (10:56)
[2018-04-07] MEDS ORDERED: NITROGLYCERIN 200 MCG/2 ML SYRINGE FOR CATH/VASC LAB. ONE (10:56)
[2018-04-07] MEDS ORDERED: HEPARIN for IV BOLUS 10,000 UNIT/10 ML VIAL. ONE (10:56)
[2018-04-07] MEDS ORDERED: MIDAZOLAM HCL/PF 2 MG/2 ML VIAL. ONE (10:56)
[2018-04-07] MEDS ORDERED: VERAPAMIL 5 MG/2 ML VIAL. IART ONE (11:45)
[2018-04-07] MEDS ORDERED: IODIXANOL 320 MG/ML 100 ML VIAL. IART ONE (11:45)
[2018-04-07] MEDS ORDERED: NITROGLYCERIN 200 MCG/2 ML SYRINGE FOR CATH/VASC LAB. IART ONE (11:45)
[2018-04-07] MEDS ORDERED: HEPARIN for IV BOLUS 10,000 UNIT/10 ML VIAL. IART ONE (11:45)
[2018-04-07] MEDS ORDERED: MIDAZOLAM HCL/PF 2 MG/2 ML VIAL. IV ONE (11:45)
[2018-04-07] MEDS ORDERED: LIDOCAINE 1% PF 2 ML VIAL. INJ ONE (11:45)
[2018-04-07] MEDS ORDERED: fentaNYL PF VIAL 100 MCG/2 ML VIAL IV ONE (11:45)
[2018-04-07] MEDS ORDERED: CONTRAST GIVEN. MC PRN (12:00)
[2018-04-07] MEDS: FUROSEMIDE 40 MG/4 ML VIAL. IVP SCH (12:09)
[2018-04-07] MEDS: INSULIN LISPRO 300 UNITS/3 ML INSULN.PEN. SQ SCH ×2 (12:21→17:27)
--- NOTE | 2018-04-07 13:02 | PDOC ---
MODERATE SEDATION ASSESSMENT RISKS/ALTERNATIVES Risks/Alternatives Risks and alternatives of this type of sedation and procedure discussed with: RISK/ALTERNATIVES: Patient H & P ON CHART H & P H & P on chart and reviewed for co-morbid conditions and appropriate labs. H&P ON CHART: Yes STATUS PREG STATUS ASSESSED: N/A MEDS/ALLERGIES REVIEWED Meds/Allergies Reviewed Medications and Allergies including time and route of recently administered narcotics and sedatives. MEDS/ALLERGIES REVIEWED: Yes ASA RATING ASA RATING: II AIRWAY ASSESSMENT Airway Assessment Airway patency, oral function limitations, presence of caps, crowns, dentures, partials, and ability to extend neck assessed. AIRWAY ASSESSMENT: Yes MALLAMPATI SCORE MALLAMPATI SCORE: II PRE-SEDATION ASSESSMENT PRE-SEDATION ASSESSMENT: Yes NATE YIN MD Apr 07, 2018 13:02
[2018-04-07] MEDS: SACUBITRIL/VALSARTAN 24/26MG TABLET. PO SCH ×2 (14:40→20:05)
--- NOTE | 2018-04-07 14:44 | CARD ---
MR#: [id number] Date of Study: 04/07/2018 Ordering Physician: GAYLA GRESHAM, Referring Physician: DUSTIN LOPEZ Tech: RT Janina (R) APPROVED REPORT Technologist: RT Janina (R) Nurse: Luz Toledo R.N. Procedure(s) performed: Left heart catheterization, selective coronary angiography and left ventricul ography via right transradial approach Moderate sedation: 13 Minutes INDICATION The indication(s) include : unstable angina . PROCEDURE NARRATIVE After explaining the risks, benefits and alternative options, informed consent was obtained from eneida ent. Patient was brought to the cardiac Silver [employer] Operator and right wrist was prepped and draped in the usual fashion after confirming a positive modified Rudy's test. Arterial access was obtained in the righ t radial artery and a 6 [place]ian sheath was inserted. 6 [place] Cisco catheter was used to perform sharona ective angiography of the left and right coronary arteries. 6 [place] pigtail catheter was used to pe rform left ventriculography. Patient tolerated the procedure well. Hemostasis was achieved using TR band. There were no immediate complications. The following findings were noted. FINDINGS 1. Hemodynamics: Left ventricular end-diastolic pressure of 24 mmHg. No pullback gradient across th e aortic valve. 2. Left ventriculography: Moderate left ventricle systolic dysfunction with ejection fraction estima amelia at 30%. No significant mitral regurgitation seen. 3. Coronary angiography: a. The left main coronary artery arose from the left sinus of Valsalva, gave rise to the left anteri or descending and left circumflex arteries and did not show any significant stenosis. b. The left anterior descending artery did not show any significant stenosis. c. The left circumflex artery was a large and dominant vessel that did not show any significant sten osis. d. The right coronary artery arose from the right sinus of Valsalva that did not show any significa nt stenosis. Conclusion 1. No significant coronary disease 2. Moderate left ventricle systolic dysfunction with ejection fraction estimated at 30%. Recommendations Optimization of medical therapy for nonischemic cardiomyopathy. Repeat 2-D echo in 3 months to evaluate the need for AICD implantation. Signed by : Raj Ramirez, Electronically Approved : 04/07/2018 14:44:14
--- NOTE | 2018-04-07 14:48 | RAD ---
Single view of the chest. 04/07/2018 1:15 PM Indication: Congestive heart failure Comparison: CT angiography of the chest, yesterday Findings: There are small bilateral pleural effusions with underlying atelectasis. Vascular congestion is improved. No pneumothorax is seen. Heart size is normal. No acute osseous changes are identified. IMPRESSION: Improved central vascular congestion with small bilateral pleural effusions and underlying atelectasis Electronically signed by: Evert Lang MD (04/07/2018 2:45 PM) [id number]
[2018-04-07 15:26] LABS: BARBITURATES NEG (NEG); BENZODIAZEPINES POS (NEG); CANNABINOIDS NEG (NEG); COCAINE NEG (NEG); METHADONE NEG (NEG); OPIATES NEG (NEG); PHENCYCLIDINE NEG (NEG)
[2018-04-07 15:29] LABS: AMPHETAMINE/METHAMPHETAMINE NEG (NEG)
--- NOTE | 2018-04-07 16:33 | PDOC ---
PULMONARY PROGRESS NOTES Vitals Vital Signs Date Time Temp Pulse Resp B/P (MAP) Pulse Ox O2 Delivery O2 Flow Rate FiO2 04/07/18 15:25 95 Room Air 04/07/18 15:07 97.1 77 20 108/58 (75) 97.1 04/07/18 11:51 2.0 Cardiovascular: S1, S2 Labs Laboratory Tests Test 04/06/18 19:47 04/06/18 20:17 04/06/18 21:11 04/07/18 06:00 Urine Collection Type Unknown Urine Color Yellow Urine Clarity Clear Urine pH 6.0 Urine Specific [place] 1.025 Urine Protein Negative mg/dL (NEG-TRACE) Urine Glucose (UA) >=1000 mg/dL (NEG) Urine Ketones (Stick) Negative mg/dL (NEG) Urine Blood Negative (NEG) Urine Nitrite Negative (NEG) Urine Bilirubin Negative (NEG) Urine Urobilinogen Dipstick 0.2 mg/dL (0.2 mg/dL) Urine Leukocyte Esterase Trace (NEG) Urine RBC 0 /HPF (0-2) Urine WBC 5-10 /HPF (0-4) Urine Squamous Epithelial Cells Few /LPF Urine Bacteria 0 /HPF (0-FEW) White Blood Count 6.8 x10^3/uL (4.0-11.0) Red Blood Count 4.34 x10^6/uL (3.50-5.40) Hemoglobin 13.4 g/dL (12.0-15.5) Hematocrit 39.0 % (36.0-47.0) Mean Corpuscular Volume 90 fL (79-100) Mean Corpuscular Hemoglobin 31 pg (25-35) Mean Corpuscular Hemoglobin Concent 34 g/dL (31-37) Red Cell Distribution Width 13.6 % (11.5-14.5) Platelet Count 245 x10^3/uL (140-400) Neutrophils (%) (Auto) 60 % (31-73) Lymphocytes (%) (Auto) 32 % (24-48) Monocytes (%) (Auto) 5 % (0-9) Eosinophils (%) (Auto) 2 % (0-3) Basophils (%) (Auto) 1 % (0-3) Neutrophils # (Auto) 4.1 x10^3uL (1.8-7.7) Lymphocytes # (Auto) 2.1 x10^3/uL (1.0-4.8) Monocytes # (Auto) 0.4 x10^3/uL (0.0-1.1) Eosinophils # (Auto) 0.1 x10^3/uL (0.0-0.7) Basophils # (Auto) 0.1 x10^3/uL (0.0-0.2) D-Dimer (Katerina) 0.59 ug/mlFEU (0.00-0.50) Sodium Level 138 mmol/L (136-145) 139 mmol/L (136-145) Potassium Level 3.6 mmol/L (3.5-5.1) 3.9 mmol/L (3.5-5.1) Chloride Level 102 mmol/L (98-107) 99 mmol/L (98-107) Carbon Dioxide Level 28 mmol/L (21-32) 26 mmol/L (21-32) Anion Gap 8 (6-14) 14 (6-14) Blood Urea Nitrogen 10 mg/dL (7-20) 13 mg/dL (7-20) Creatinine 0.7 mg/dL (0.6-1.0) 0.7 mg/dL (0.6-1.0) Estimated GFR (Cockcroft-Gault) 86.2 86.2 Glucose Level 306 mg/dL (70-99) 450 mg/dL (70-99) Calcium Level 8.9 mg/dL (8.5-10.1) 9.2 mg/dL (8.5-10.1) Troponin I Quantitative < 0.017 ng/mL (0.000-0.055) < 0.017 ng/mL (0.000-0.055) OC-Rpz-G-Type Natriuretic Peptide 2433 pg/mL (0-124) Magnesium Level 1.8 mg/dL (1.8-2.4) Total Bilirubin 1.0 mg/dL (0.2-1.0) Direct Bilirubin 0.2 mg/dL (0.0-0.2) Aspartate Amino Transf (AST/SGOT) 20 U/L (15-37) Alanine Aminotransferase (ALT/SGPT) 42 U/L (14-59) Alkaline Phosphatase 95 U/L (46-116) Total Protein 6.9 g/dL (6.4-8.2) Albumin 3.5 g/dL (3.4-5.0) Triglycerides Level 64 mg/dL (0-150) Cholesterol Level 167 mg/dL (0-200) LDL Cholesterol, Calculated 108 mg/dL (0-100) VLDL Cholesterol, Calculated 13 mg/dL (0-40) Non-HDL Cholesterol Calculated 121 mg/dL (0-129) HDL Cholesterol 46 mg/dL (40-60) Cholesterol/HDL Ratio 3.6 Thyroid Stimulating Hormone (TSH) 1.340 uIU/mL (0.358-3.74) Test 04/07/18 07:44 04/07/18 10:45 04/07/18 12:05 04/07/18 15:00 Glucose (Fingerstick) 375 mg/dL (70-99) 223 mg/dL (70-99) Troponin I Quantitative < 0.017 ng/mL (0.000-0.055) Urine Opiates Screen Neg (NEG) Urine Methadone Screen Neg (NEG) Urine Barbiturates Neg (NEG) Urine Phencyclidine Screen Neg (NEG) Urine Amphetamine/Methamphetamine Neg (NEG) Urine Benzodiazepines Screen Pos (NEG) Urine Cocaine Screen Neg (NEG) Urine Cannabinoids Screen Neg (NEG) Urine Ethyl Alcohol Neg (NEG) Laboratory Tests Test 04/06/18 19:47 04/06/18 20:17 04/06/18 21:11 04/07/18 06:00 Urine Collection Type Unknown Urine Color Yellow Urine Clarity Clear Urine pH 6.0 Urine Specific [place] 1.025 Urine Protein Negative mg/dL (NEG-TRACE) Urine Glucose (UA) >=1000 mg/dL (NEG) Urine Ketones (Stick) Negative mg/dL (NEG) Urine Blood Negative (NEG) Urine Nitrite Negative (NEG) Urine Bilirubin Negative (NEG) Urine Urobilinogen Dipstick 0.2 mg/dL (0.2 mg/dL) Urine Leukocyte Esterase Trace (NEG) Urine RBC 0 /HPF (0-2) Urine WBC 5-10 /HPF (0-4) Urine Squamous Epithelial Cells Few /LPF Urine Bacteria 0 /HPF (0-FEW) White Blood Count 6.8 x10^3/uL (4.0-11.0) Red Blood Count 4.34 x10^6/uL (3.50-5.40) Hemoglobin 13.4 g/dL (12.0-15.5) Hematocrit 39.0 % (36.0-47.0) Mean Corpuscular Volume 90 fL (79-100) Mean Corpuscular Hemoglobin 31 pg (25-35) Mean Corpuscular Hemoglobin Concent 34 g/dL (31-37) Red Cell Distribution Width 13.6 % (11.5-14.5) Platelet Count 245 x10^3/uL (140-400) Neutrophils (%) (Auto) 60 % (31-73) Lymphocytes (%) (Auto) 32 % (24-48) Monocytes (%) (Auto) 5 % (0-9) Eosinophils (%) (Auto) 2 % (0-3) Basophils (%) (Auto) 1 % (0-3) Neutrophils # (Auto) 4.1 x10^3uL (1.8-7.7) Lymphocytes # (Auto) 2.1 x10^3/uL (1.0-4.8) Monocytes # (Auto) 0.4 x10^3/uL (0.0-1.1) Eosinophils # (Auto) 0.1 x10^3/uL (0.0-0.7) Basophils # (Auto) 0.1 x10^3/uL (0.0-0.2) D-Dimer (Katerina) 0.59 ug/mlFEU (0.00-0.50) Sodium Level 138 mmol/L (136-145) 139 mmol/L (136-145) Potassium Level 3.6 mmol/L (3.5-5.1) 3.9 mmol/L (3.5-5.1) Chloride Level 102 mmol/L (98-107) 99 mmol/L (98-107) Carbon Dioxide Level 28 mmol/L (21-32) 26 mmol/L (21-32) Anion Gap 8 (6-14) 14 (6-14) Blood Urea Nitrogen 10 mg/dL (7-20) 13 mg/dL (7-20) Creatinine 0.7 mg/dL (0.6-1.0) 0.7 mg/dL (0.6-1.0) Estimated GFR (Cockcroft-Gault) 86.2 86.2 Glucose Level 306 mg/dL (70-99) 450 mg/dL (70-99) Calcium Level 8.9 mg/dL (8.5-10.1) 9.2 mg/dL (8.5-10.1) Troponin I Quantitative < 0.017 ng/mL (0.000-0.055) < 0.017 ng/mL (0.000-0.055) QB-Fce-P-Type Natriuretic Peptide 2433 pg/mL (0-124) Magnesium Level 1.8 mg/dL (1.8-2.4) Total Bilirubin 1.0 mg/dL (0.2-1.0) Direct Bilirubin 0.2 mg/dL (0.0-0.2) Aspartate Amino Transf (AST/SGOT) 20 U/L (15-37) Alanine Aminotransferase (ALT/SGPT) 42 U/L (14-59) Alkaline Phosphatase 95 U/L (46-116) Total Protein 6.9 g/dL (6.4-8.2) Albumin 3.5 g/dL (3.4-5.0) Triglycerides Level 64 mg/dL (0-150) Cholesterol Level 167 mg/dL (0-200) LDL Cholesterol, Calculated 108 mg/dL (0-100) VLDL Cholesterol, Calculated 13 mg/dL (0-40) Non-HDL Cholesterol Calculated 121 mg/dL (0-129) HDL Cholesterol 46 mg/dL (40-60) Cholesterol/HDL Ratio 3.6 Thyroid Stimulating Hormone (TSH) 1.340 uIU/mL (0.358-3.74) Test 04/07/18 07:44 04/07/18 10:45 04/07/18 12:05 04/07/18 15:00 Glucose (Fingerstick) 375 mg/dL (70-99) 223 mg/dL (70-99) Troponin I Quantitative < 0.017 ng/mL (0.000-0.055) Urine Opiates Screen Neg (NEG) Urine Methadone Screen Neg (NEG) Urine Barbiturates Neg (NEG) Urine Phencyclidine Screen Neg (NEG) Urine Amphetamine/Methamphetamine Neg (NEG) Urine Benzodiazepines Screen Pos (NEG) Urine Cocaine Screen Neg (NEG) Urine Cannabinoids Screen Neg (NEG) Urine Ethyl Alcohol Neg (NEG) Impression . RESP DISTRESS SEC TO HEART FAILURE AND AECOPD SEE ORDERS THANKS MONICA CRAWLEY MD Apr 07, 2018 16:33
[2018-04-07] MEDS ORDERED: ATORVASTATIN CALCIUM 40 MG TABLET. PO SCH ×2 (21:00)
--- NOTE | 2018-04-07 23:51 | CONS ---
DATE OF CONSULTATION: 04/07/2018 ATTENDING PHYSICIAN: Carmelina Ivory M.D. REASON FOR CONSULTATION: The patient seen in pulmonary consultation at the request of Dr. Ramirez for respiratory distress and abnormal x-ray. HISTORY OF PRESENT ILLNESS: The patient is a 57-year old who really does not follow up with a regular physician, quit tobacco in 2014, was using p.r.n. ProAir. Last week some time, she was [facility] in one of the pharmacies locally here, was treated for an upper respiratory tract infection. She presented with increasing shortness of breath. She presented to the Emergency Room yesterday with complaints of recurrent cough and shortness of breath, was increasing her inhaler use with no significant improvement. The patient was admitted. She had a chest x-ray, which revealed bilateral pulmonary infiltrates compatible with acute pulmonary edema. She had a CT angiogram revealing [id number] bilateral effusions. No pulmonary emboli. There was a prominent lateral aortic lymph node that was probably reactive. The patient underwent echocardiogram, which revealed decreased ejection fraction down to 30%. She subsequently underwent cardiac catheterization revealing no significant coronary artery disease. There was a moderate left ventricular dysfunction. Ejection fraction was estimated at 30%. PAST MEDICAL HISTORY: Tobacco dependence, in remission, smoked for 30 years, quit in 2014. No documented COPD, though she was using p.r.n. ProAir. FAMILY HISTORY: No family history of lung cancer. SOCIAL HISTORY: Socially, she quit tobacco in 2014, smoked for over 30 years, 1 pack of cigarettes a day. Denies any alcohol intake or drug use. 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 VACCINATION HISTORY: She was given the flu vaccination today. She has never had a pneumonia vaccination. REVIEW OF SYSTEMS: CONSTITUTIONAL: No fever or chills. EYES: No change in visual acuity. HEENT: No nasal congestion or sore throat. PULMONARY: As indicated above. CARDIOVASCULAR: No chest pain. No pressure. GASTROINTESTINAL: No nausea, vomiting or diarrhea. GENITOURINARY: No dysuria or frequency. MUSCULOSKELETAL: No localized muscle aches or joint pain. SKIN: No new skin rashes. NEUROLOGICAL: No headaches, diplopia or blurred vision. PHYSICAL EXAMINATION: VITAL SIGNS: The patient on 2 liters of oxygen supplementation. She has been afebrile since admission. HEENT: Eyes, the sclerae were nonicteric. NECK: Jugular venous distention was not elevated. No lymphadenopathy. CHEST: Full expansion. LUNGS: Crackles in the bases. No wheezes. CARDIOVASCULAR: Regular rate and rhythm with S1, S2 and S3. ABDOMEN: Soft, nontender and nondistended. EXTREMITIES: No clubbing, cyanosis or edema. NEUROLOGICAL: The patient was awake, alert and following commands. A detailed neuro exam was not performed. LABORATORY DATA: CBC was normal. Electrolytes were noted. BUN and creatinine were normal. Troponin was not elevated. BNP was elevated. Lipid profile was obtained. LDL was high at 108. TSH was normal. RADIOLOGICAL DATA: Chest x-ray as indicated above. Toxicology screen was positive for benzodiazepines. UA was noted. IMPRESSION: 1. Progressive dyspnea secondary to acute systolic heart failure. 2. Nonischemic cardiomyopathy, ejection fraction 30%. 3. Chronic obstructive pulmonary disease, unknown FEV1. 4. Tobacco dependence, in remission. PLAN: 1. Pulmonary status appears to be compensated. The patient will undergo a 6-minute walk prior to discharge. 2. Continue p.r.n. ProAir. 3. Outpatient pulmonary function testing. 4. Follow Cardiology input. 5. Repeat CT chest in 6 months, followup on the abnormal prominent lateral aortic lymph node. I do appreciate the privilege in sharing in the patient's care. MONICA CRAWLEY MD DR: [email or web address]/blanco JOB#: [id number] / [id number]
[2018-04-08 02:14] LABS: HEMOGLOBIN A1C 11.8 % (4.8-5.6)
[2018-04-08 02:40] VITALS: BP 118/73
[2018-04-08 07:00] VITALS: BP 134/74
[2018-04-08] MEDS ORDERED: ASPIRIN ENTERIC COATED 81 MG TABLET.DR. PO SCH (08:00)
[2018-04-08] MEDS: METOPROLOL SUCC 24HR ER 50 MG TAB.ER.24H. PO SCH (08:22)
[2018-04-08] MEDS: SACUBITRIL/VALSARTAN 24/26MG TABLET. PO SCH (08:22)
[2018-04-08] MEDS: FUROSEMIDE 40 MG/4 ML VIAL. IVP SCH (08:23)
[2018-04-08] MEDS: INSULIN LISPRO 300 UNITS/3 ML INSULN.PEN. SQ SCH ×2 (08:32→12:49)
--- NOTE | 2018-04-08 10:57 | PDOC ---
PROGRESS NOTES Chief Complaint Chief Complaint Accel hypertension POA- new onset CHF, systolic heart failure EF 30% New-onset/new diagnosis diabetes with hemoglobin A1c 12 Anxiety NOS Postnasal drip/acute viral syndrome Moderate bilateral pleural effusion-to diurese secondary to systolic heart failure History of Present Illness History of Present Illness EF 30%, LifeVest fitting to happen at 1 PM Breathing better Blood sugars are high 300, hemoglobin A1c is 12-news to her Plan: Start metformin 500 twice a day start glyburide 5 twice a day start Lantus 15 daily at bedtime I will provide scripts Novofine needles, glucometer etc. Awaiting LifeVest fitting Will need cardiac meds on discharge Patient seen and examined, discussed with her and family member and RN Vitals Vitals Vital Signs Date Time Temp Pulse Resp B/P (MAP) Pulse Ox O2 Delivery O2 Flow Rate FiO2 04/08/18 08:22 88 134/74 04/08/18 08:00 Room Air 04/08/18 07:00 97.7 16 97 2.0 97.7 Physical Exam General: Other (crying mildly anxious on my visit but not in acute distress) Heart: Regular rate (sinus tach), Normal S1, Normal S2, Other (2/6 ssytolic murmur to LLS border; S3) Abdomen: Normal bowel sounds, Soft, No tenderness, No hepatosplenomegaly, No masses Extremities: No clubbing, No cyanosis, No edema, Normal pulses, No tenderness/ swelling Skin: No rashes, No breakdown, No significant lesion Labs LABS Laboratory Tests Test 04/07/18 12:05 04/07/18 15:00 04/07/18 16:28 04/07/18 21:01 Glucose (Fingerstick) 223 mg/dL (70-99) 193 mg/dL (70-99) 432 mg/dL (70-99) Urine Opiates Screen Neg (NEG) Urine Methadone Screen Neg (NEG) Urine Barbiturates Neg (NEG) Urine Phencyclidine Screen Neg (NEG) Urine Amphetamine/Methamphetamine Neg (NEG) Urine Benzodiazepines Screen Pos (NEG) Urine Cocaine Screen Neg (NEG) Urine Cannabinoids Screen Neg (NEG) Urine Ethyl Alcohol Neg (NEG) Test 04/07/18 22:51 04/08/18 00:38 04/08/18 08:20 Glucose (Fingerstick) 371 mg/dL (70-99) 231 mg/dL (70-99) 303 mg/dL (70-99) Review of Systems Review of Systems A 14 point ROS was completed with the following noted as positive: Other systems reviewed and negative. \CONSTITUTIONAL: No fever or chills EYES: No recent changes SKIN: No rash or itching CARDIOVASCULAR: No chest pain, syncope, palpitations, or edema RESPIRATORY: No SOB or cough GASTROINTESTINAL: No nausea, vomiting or abdominal pain NEUROLOGICAL: No headaches or weakness ENDOCRINE: No cold or heat intolerance GENITOURINARY: No urgency or frequency of urination MUSCULOSKELETAL: No back pain or joint pain LYMPHATICS: No enlarged lymph nodes PSYCHIATRIC: No anxiety or depression Assessment and Plan Assessmemt and Plan Problems Medical Problems: (1) Acute exacerbation of CHF (congestive heart failure) Status: Acute (2) COPD with exacerbation Status: Acute (3) Hyperglycemia Status: Acute Comment Review of Relevant I have reviewed the following items nina (where applicable) has been applied. Labs Laboratory Tests Test 04/06/18 19:47 04/06/18 20:17 04/06/18 21:11 04/07/18 06:00 Urine Collection Type Unknown Urine Color Yellow Urine Clarity Clear Urine pH 6.0 Urine Specific [place] 1.025 Urine Protein Negative mg/dL (NEG-TRACE) Urine Glucose (UA) >=1000 mg/dL (NEG) Urine Ketones (Stick) Negative mg/dL (NEG) Urine Blood Negative (NEG) Urine Nitrite Negative (NEG) Urine Bilirubin Negative (NEG) Urine Urobilinogen Dipstick 0.2 mg/dL (0.2 mg/dL) Urine Leukocyte Esterase Trace (NEG) Urine RBC 0 /HPF (0-2) Urine WBC 5-10 /HPF (0-4) Urine Squamous Epithelial Cells Few /LPF Urine Bacteria 0 /HPF (0-FEW) White Blood Count 6.8 x10^3/uL (4.0-11.0) Red Blood Count 4.34 x10^6/uL (3.50-5.40) Hemoglobin 13.4 g/dL (12.0-15.5) Hematocrit 39.0 % (36.0-47.0) Mean Corpuscular Volume 90 fL (79-100) Mean Corpuscular Hemoglobin 31 pg (25-35) Mean Corpuscular Hemoglobin Concent 34 g/dL (31-37) Red Cell Distribution Width 13.6 % (11.5-14.5) Platelet Count 245 x10^3/uL (140-400) Neutrophils (%) (Auto) 60 % (31-73) Lymphocytes (%) (Auto) 32 % (24-48) Monocytes (%) (Auto) 5 % (0-9) Eosinophils (%) (Auto) 2 % (0-3) Basophils (%) (Auto) 1 % (0-3) Neutrophils # (Auto) 4.1 x10^3uL (1.8-7.7) Lymphocytes # (Auto) 2.1 x10^3/uL (1.0-4.8) Monocytes # (Auto) 0.4 x10^3/uL (0.0-1.1) Eosinophils # (Auto) 0.1 x10^3/uL (0.0-0.7) Basophils # (Auto) 0.1 x10^3/uL (0.0-0.2) D-Dimer (Katerina) 0.59 ug/mlFEU (0.00-0.50) Sodium Level 138 mmol/L (136-145) 139 mmol/L (136-145) Potassium Level 3.6 mmol/L (3.5-5.1) 3.9 mmol/L (3.5-5.1) Chloride Level 102 mmol/L (98-107) 99 mmol/L (98-107) Carbon Dioxide Level 28 mmol/L (21-32) 26 mmol/L (21-32) Anion Gap 8 (6-14) 14 (6-14) Blood Urea Nitrogen 10 mg/dL (7-20) 13 mg/dL (7-20) Creatinine 0.7 mg/dL (0.6-1.0) 0.7 mg/dL (0.6-1.0) Estimated GFR (Cockcroft-Gault) 86.2 86.2 Glucose Level 306 mg/dL (70-99) 450 mg/dL (70-99) Calcium Level 8.9 mg/dL (8.5-10.1) 9.2 mg/dL (8.5-10.1) Troponin I Quantitative < 0.017 ng/mL (0.000-0.055) < 0.017 ng/mL (0.000-0.055) YG-Avg-G-Type Natriuretic Peptide 2433 pg/mL (0-124) Hemoglobin A1c 11.8 % (4.8-5.6) Magnesium Level 1.8 mg/dL (1.8-2.4) Total Bilirubin 1.0 mg/dL (0.2-1.0) Direct Bilirubin 0.2 mg/dL (0.0-0.2) Aspartate Amino Transf (AST/SGOT) 20 U/L (15-37) Alanine Aminotransferase (ALT/SGPT) 42 U/L (14-59) Alkaline Phosphatase 95 U/L (46-116) Total Protein 6.9 g/dL (6.4-8.2) Albumin 3.5 g/dL (3.4-5.0) Triglycerides Level 64 mg/dL (0-150) Cholesterol Level 167 mg/dL (0-200) LDL Cholesterol, Calculated 108 mg/dL (0-100) VLDL Cholesterol, Calculated 13 mg/dL (0-40) Non-HDL Cholesterol Calculated 121 mg/dL (0-129) HDL Cholesterol 46 mg/dL (40-60) Cholesterol/HDL Ratio 3.6 Thyroid Stimulating Hormone (TSH) 1.340 uIU/mL (0.358-3.74) Test 04/07/18 07:44 04/07/18 10:45 04/07/18 12:05 04/07/18 15:00 Glucose (Fingerstick) 375 mg/dL (70-99) 223 mg/dL (70-99) Troponin I Quantitative < 0.017 ng/mL (0.000-0.055) Urine Opiates Screen Neg (NEG) Urine Methadone Screen Neg (NEG) Urine Barbiturates Neg (NEG) Urine Phencyclidine Screen Neg (NEG) Urine Amphetamine/Methamphetamine Neg (NEG) Urine Benzodiazepines Screen Pos (NEG) Urine Cocaine Screen Neg (NEG) Urine Cannabinoids Screen Neg (NEG) Urine Ethyl Alcohol Neg (NEG) Test 04/07/18 16:28 04/07/18 21:01 04/07/18 22:51 04/08/18 00:38 Glucose (Fingerstick) 193 mg/dL (70-99) 432 mg/dL (70-99) 371 mg/dL (70-99) 231 mg/dL (70-99) Test 04/08/18 08:20 Glucose (Fingerstick) 303 mg/dL (70-99) Laboratory Tests Test 04/07/18 12:05 04/07/18 15:00 04/07/18 16:28 04/07/18 21:01 Glucose (Fingerstick) 223 mg/dL (70-99) 193 mg/dL (70-99) 432 mg/dL (70-99) Urine Opiates Screen Neg (NEG) Urine Methadone Screen Neg (NEG) Urine Barbiturates Neg (NEG) Urine Phencyclidine Screen Neg (NEG) Urine Amphetamine/Methamphetamine Neg (NEG) Urine Benzodiazepines Screen Pos (NEG) Urine Cocaine Screen Neg (NEG) Urine Cannabinoids Screen Neg (NEG) Urine Ethyl Alcohol Neg (NEG) Test 04/07/18 22:51 04/08/18 00:38 04/08/18 08:20 Glucose (Fingerstick) 371 mg/dL (70-99) 231 mg/dL (70-99) 303 mg/dL (70-99) Medications Current Medications Albuterol/ Ipratropium (Duoneb) 3 ml 1X ONCE NEB Last administered on at 20:34; Start 04/06/18 at 20:15; Stop 04/06/18 at 20:16; Status DC Prednisone (Prednisone) 60 mg 1X ONCE PO Last administered on 04/06/18at 20:20 ; Start 04/06/18 at 20:15; Stop 04/06/18 at 20:16; Status DC Iohexol (Omnipaque 300 Mg/ml) 75 ml 1X ONCE IV Last administered on at 22:06; Start 04/06/18 at 22:15; Stop 04/06/18 at 22:16; Status DC Info (CONTRAST GIVEN -- Rx MONITORING) 1 each PRN DAILY PRN MC SEE COMMENTS; Start 04/06/18 at 22:00; Stop 04/08/18 at 21:59; Status Cancel Furosemide (Lasix) 40 mg 1X ONCE IVP Last administered on 04/06/18at 23:55; Start 04/06/18 at 23:30; Stop 04/06/18 at 23:31; Status DC Insulin Human Regular (HumuLIN R VIAL) 6 unit 1X ONCE IV Last administered on 04/07/18at 00:04; Start 04/07/18 at 00:00; Stop 04/07/18 at 00:01; Status DC Acetaminophen (Tylenol) 650 mg PRN Q4HRS PRN PO FEVER Last administered on 05/15at 20:05; Start 04/07/18 at 00:00; Stop 04/07/18 at 23:59; Status DC Albuterol/ Ipratropium (Duoneb) 3 ml RTQID NEB Last administered on 04/07/18at 20:15; Start 04/07/18 at 08:00; Stop 04/08/18 at 07:59; Status DC Influenza Virus Vaccine (Afluria Trivalent [id number] Syringe) 0.5 ml ONCE ONCE VAX IM Last administered on 04/07/18at 12:13; Start 04/07/18 at 09:00; Stop 04/07/18 at 09:01; Status DC Guaifenesin (Robitussin Dm) 10 ml PRN Q6HRS PRN PO COUGH; Start 04/07/18 at 08 :00 Ondansetron HCl (Zofran) 4 mg PRN Q6HRS PRN IV NAUSEA/VOMITING 1ST CHOICE; Start 04/07/18 at 08:00 Ondansetron HCl (Zofran Odt) 4 mg PRN Q6HRS PRN PO NAUSEA/VOMITING 1ST CHOICE; Start 04/07/18 at 08:00 Labetalol HCl (Normodyne Iv Push) 20 mg PRN Q2HR PRN IVP HYPERTENSION, SEE COMMENTS; Start 04/07/18 at 08:00 Aspirin (Dorys Aspirin) 325 mg 1X ONCE PO Last administered on 04/07/18at 09: 49; Start 04/07/18 at 08:45; Stop 04/07/18 at 08:46; Status DC Metoprolol Succinate (Toprol Xl) 50 mg DAILY PO Last administered on at 08:22; Start 04/07/18 at 09:00 Atorvastatin Calcium (Lipitor) 40 mg QHS PO ; Start 04/07/18 at 21:00; Stop at 21:00; Status DC Furosemide (Lasix) 40 mg DAILY IVP Last administered on 04/08/18at 08:23; Start 04/07/18 at 09:15 Insulin Human Lispro (HumaLOG VIAL) 12 unit 1X ONCE SQ ; Start 04/07/18 at 09: 15; Stop 04/07/18 at 09:16; Status UNV Insulin Human Lispro (HumaLOG) 0-9 UNITS TIDWMEALS SQ Last administered on 06/14at 08:32; Start 04/07/18 at 12:00 Dextrose (Dextrose 50%-Water Syringe) 12.5 gm PRN Q15MIN PRN IV SEE COMMENTS; Start 04/07/18 at 09:15 Insulin Human Lispro (HumaLOG) 12 units ONCE ONCE SQ Last administered on 05/15at 09:56; Start 04/07/18 at 09:30; Stop 04/07/18 at 09:31; Status DC Iodixanol (Visipaque 320) 100 ml STK-MED ONCE .ROUTE ; Start 04/07/18 at 10:07 ; Stop 04/07/18 at 10:08; Status DC Lidocaine HCl (Xylocaine-Mpf 1% 2ml Vial) 2 ml STK-MED ONCE .ROUTE ; Start 05/15 at 10:07; Stop 04/07/18 at 10:08; Status DC Heparin Sodium/ Sodium Chloride 500 ml @ As Directed STK-MED ONCE .ROUTE ; Start 04/07/18 at 10:07; Stop 04/07/18 at 10:08; Status DC Fentanyl Citrate (Fentanyl 2ml Vial) 100 mcg STK-MED ONCE .ROUTE ; Start at 10:55; Stop 04/07/18 at 10:56; Status DC Midazolam HCl (Versed) 2 mg STK-MED ONCE .ROUTE ; Start 04/07/18 at 10:56; Stop 04/07/18 at 10:57; Status DC Heparin Sodium (Porcine) (Heparin Sodium) 10,000 unit STK-MED ONCE .ROUTE ; Start 04/07/18 at 10:56; Stop 04/07/18 at 10:57; Status DC Verapamil HCl (Verapamil) 5 mg STK-MED ONCE .ROUTE ; Start 04/07/18 at 10:56; Stop 04/07/18 at 10:57; Status DC Nitroglycerin (Nitroglycerin) 200 mcg STK-MED ONCE .ROUTE ; Start 04/07/18 at 10:56; Stop 04/07/18 at 10:57; Status DC Nitroglycerin (Nitroglycerin) 200 mcg 1X ONCE IART Last administered on at 11:50; Start 04/07/18 at 11:45; Stop 04/07/18 at 11:47; Status DC Verapamil HCl (Verapamil) 2.5 mg 1X ONCE IART Last administered on 04/07/18at 11:49; Start 04/07/18 at 11:45; Stop 04/07/18 at 11:47; Status DC Heparin Sodium (Porcine) (Heparin Sodium) 2,500 unit 1X ONCE IART Last administered on 04/07/18at 11:50; Start 04/07/18 at 11:45; Stop 04/07/18 at 11 :47; Status DC Heparin Sodium/ Sodium Chloride (HEPARIN for ARTERIAL LINE FLUSH) 1,000 unit 1X ONCE IART Last administered on 04/07/18at 11:48; Start 04/07/18 at 11:45; Stop 04/07/18 at 11:47; Status DC Midazolam HCl (Versed) 2 mg 1X ONCE IV Last administered on 04/07/18at 11:49; Start 04/07/18 at 11:45; Stop 04/07/18 at 11:47; Status DC Fentanyl Citrate (Fentanyl 2ml Vial) 50 mcg 1X ONCE IV Last administered on at 11:49; Start 04/07/18 at 11:45; Stop 04/07/18 at 11:47; Status DC Iodixanol (Visipaque 320) 86 ml 1X ONCE IART Last administered on 04/07/18at 11:50; Start 04/07/18 at 11:45; Stop 04/07/18 at 11:47; Status DC Lidocaine HCl (Xylocaine-Mpf 1% 2ml Vial) 1 ml 1X ONCE INJ Last administered on 04/07/18at 11:50; Start 04/07/18 at 11:45; Stop 04/07/18 at 11:47; Status DC Info (CONTRAST GIVEN -- Rx MONITORING) 1 each PRN DAILY PRN MC SEE COMMENTS; Start 04/07/18 at 12:00; Stop 04/09/18 at 11:59 Sacubitril/ Valsartan (Entresto 24 Mg-26 Mg) 1 tab BID PO Last administered on 04/08/18at 08:22; Start 04/07/18 at 13:15 Atorvastatin Calcium (Lipitor) 20 mg QHS PO Last administered on 04/07/18at 20: 06; Start 04/07/18 at 21:00 Insulin Human Lispro (HumaLOG) 8 units 1X ONCE SQ Last administered on at 22:58; Start 04/07/18 at 23:00; Stop 04/07/18 at 23:01; Status DC Aspirin (Ecotrin) 81 mg DAILYWBKFT PO Last administered on 04/08/18at 08:21; Start 04/08/18 at 08:00 Glyburide (Diabeta) 5 mg BIDWMEALS PO ; Start 04/08/18 at 17:00 Insulin Glargine (Lantus) 15 units QHS SQ ; Start 04/08/18 at 21:00 Metformin HCl (Glucophage) 500 mg BIDWMEALS PO ; Start 04/09/18 at 17:00 Vitals/I & O Vital Sign - Last 24 Hours 04/07/18 04/07/18 04/07/18 04/07/18 11:49 11:49 11:51 11:58 Pulse 76 76 92 Resp 12 16 B/P (MAP) 124/70 (88) Pulse Ox 93 92 O2 Delivery Nasal Cannula Nasal Cannula O2 Flow Rate 2.0 2.0 04/07/18 04/07/18 04/07/18 04/07/18 12:13 12:28 12:43 13:23 Pulse 80 82 82 88 B/P (MAP) 115/62 (79) 109/63 (78) 109/70 (83) 118/60 (79) Pulse Ox 93 94 93 93 04/07/18 04/07/18 04/07/18 04/07/18 13:43 14:40 14:43 15:07 Temp 97.1 97.1 Pulse 74 79 78 77 Resp 20 B/P (MAP) 102/56 (71) 113/57 101/59 (73) 108/58 (75) Pulse Ox 94 95 94 O2 Delivery Room Air 04/07/18 04/07/18 04/07/18 04/07/18 15:25 19:55 19:56 20:00 Temp 97.3 97.8 97.3 97.8 Pulse 93 75 Resp 20 18 B/P (MAP) 111/61 (78) 111/67 (82) Pulse Ox 95 95 95 O2 Delivery Room Air Room Air Room Air Room Air 04/07/18 04/07/18 04/07/18 04/08/18 20:05 20:10 22:55 02:40 Temp 98.4 97.8 98.4 97.8 Pulse 75 82 84 Resp 18 18 B/P (MAP) 111/67 120/65 (83) 118/73 (88) Pulse Ox 95 94 96 O2 Delivery Room Air Room Air Nasal Cannula O2 Flow Rate 2.0 04/08/18 04/08/18 04/08/18 04/08/18 07:00 08:00 08:22 08:22 Temp 97.7 97.7 Pulse 76 88 88 Resp 16 B/P (MAP) 134/74 (94) 134/74 134/74 Pulse Ox 97 O2 Delivery Nasal Cannula Room Air O2 Flow Rate 2.0 Intake and Output 04/07/18 04/07/18 04/08/18 15:00 23:00 07:00 Intake Total 650 ml 380 ml Output Total 1000 ml 900 ml Balance -350 ml -520 ml TREVOR LOERA MD Apr 08, 2018 10:57
[2018-04-08] MEDS ORDERED: METO50TA4 PO (10:59)
[2018-04-08] MEDS ORDERED: METF500T PO (10:59)
[2018-04-08] MEDS ORDERED: ASPI-612 PO (10:59)
[2018-04-08] MEDS ORDERED: FURO-68 PO (10:59)
[2018-04-08] MEDS ORDERED: ATOR40TA59 PO (10:59)
[2018-04-08] MEDS ORDERED: SACU1TAB PO (10:59)
[2018-04-08] MEDS ORDERED: GLYB5TAB3 PO (10:59)
--- NOTE | 2018-04-08 11:01 | PDOC3 ---
Discharge Summary Visit Information Date of Admission: Apr 07, 2018 Date of Discharge: Apr 08, 2018 Final Diagnosis Problems Medical Problems: (1) Acute exacerbation of CHF (congestive heart failure) Status: Acute (2) COPD with exacerbation Status: Acute (3) Hyperglycemia Status: Acute Brief Hospital Course Allergies Allergies Coded Allergies Type Severity Reaction Last Updated Verified codeine Allergy Severe 04/06/18 Yes Vital Signs Vital Signs Date Time Temp Pulse Resp B/P (MAP) Pulse Ox O2 Delivery O2 Flow Rate FiO2 04/08/18 08:22 88 134/74 04/08/18 08:00 Room Air 04/08/18 07:00 97.7 16 97 2.0 97.7 Lab Results Laboratory Tests Test 04/06/18 19:47 04/06/18 20:17 04/06/18 21:11 04/07/18 06:00 Urine Collection Type Unknown Urine Color Yellow Urine Clarity Clear Urine pH 6.0 Urine Specific [facility] 1.025 Urine Protein Negative mg/dL (NEG-TRACE) Urine Glucose (UA) >=1000 mg/dL (NEG) Urine Ketones (Stick) Negative mg/dL (NEG) Urine Blood Negative (NEG) Urine Nitrite Negative (NEG) Urine Bilirubin Negative (NEG) Urine Urobilinogen Dipstick 0.2 mg/dL (0.2 mg/dL) Urine Leukocyte Esterase Trace (NEG) Urine RBC 0 /HPF (0-2) Urine WBC 5-10 /HPF (0-4) Urine Squamous Epithelial Cells Few /LPF Urine Bacteria 0 /HPF (0-FEW) White Blood Count 6.8 x10^3/uL (4.0-11.0) Red Blood Count 4.34 x10^6/uL (3.50-5.40) Hemoglobin 13.4 g/dL (12.0-15.5) Hematocrit 39.0 % (36.0-47.0) Mean Corpuscular Volume 90 fL (79-100) Mean Corpuscular Hemoglobin 31 pg (25-35) Mean Corpuscular Hemoglobin Concent 34 g/dL (31-37) Red Cell Distribution Width 13.6 % (11.5-14.5) Platelet Count 245 x10^3/uL (140-400) Neutrophils (%) (Auto) 60 % (31-73) Lymphocytes (%) (Auto) 32 % (24-48) Monocytes (%) (Auto) 5 % (0-9) Eosinophils (%) (Auto) 2 % (0-3) Basophils (%) (Auto) 1 % (0-3) Neutrophils # (Auto) 4.1 x10^3uL (1.8-7.7) Lymphocytes # (Auto) 2.1 x10^3/uL (1.0-4.8) Monocytes # (Auto) 0.4 x10^3/uL (0.0-1.1) Eosinophils # (Auto) 0.1 x10^3/uL (0.0-0.7) Basophils # (Auto) 0.1 x10^3/uL (0.0-0.2) D-Dimer (Katerina) 0.59 ug/mlFEU (0.00-0.50) Sodium Level 138 mmol/L (136-145) 139 mmol/L (136-145) Potassium Level 3.6 mmol/L (3.5-5.1) 3.9 mmol/L (3.5-5.1) Chloride Level 102 mmol/L (98-107) 99 mmol/L (98-107) Carbon Dioxide Level 28 mmol/L (21-32) 26 mmol/L (21-32) Anion Gap 8 (6-14) 14 (6-14) Blood Urea Nitrogen 10 mg/dL (7-20) 13 mg/dL (7-20) Creatinine 0.7 mg/dL (0.6-1.0) 0.7 mg/dL (0.6-1.0) Estimated GFR (Cockcroft-Gault) 86.2 86.2 Glucose Level 306 mg/dL (70-99) 450 mg/dL (70-99) Calcium Level 8.9 mg/dL (8.5-10.1) 9.2 mg/dL (8.5-10.1) Troponin I Quantitative < 0.017 ng/mL (0.000-0.055) < 0.017 ng/mL (0.000-0.055) GB-Hue-W-Type Natriuretic Peptide 2433 pg/mL (0-124) Hemoglobin A1c 11.8 % (4.8-5.6) Magnesium Level 1.8 mg/dL (1.8-2.4) Total Bilirubin 1.0 mg/dL (0.2-1.0) Direct Bilirubin 0.2 mg/dL (0.0-0.2) Aspartate Amino Transf (AST/SGOT) 20 U/L (15-37) Alanine Aminotransferase (ALT/SGPT) 42 U/L (14-59) Alkaline Phosphatase 95 U/L (46-116) Total Protein 6.9 g/dL (6.4-8.2) Albumin 3.5 g/dL (3.4-5.0) Triglycerides Level 64 mg/dL (0-150) Cholesterol Level 167 mg/dL (0-200) LDL Cholesterol, Calculated 108 mg/dL (0-100) VLDL Cholesterol, Calculated 13 mg/dL (0-40) Non-HDL Cholesterol Calculated 121 mg/dL (0-129) HDL Cholesterol 46 mg/dL (40-60) Cholesterol/HDL Ratio 3.6 Thyroid Stimulating Hormone (TSH) 1.340 uIU/mL (0.358-3.74) Test 04/07/18 07:44 04/07/18 10:45 04/07/18 12:05 04/07/18 15:00 Glucose (Fingerstick) 375 mg/dL (70-99) 223 mg/dL (70-99) Troponin I Quantitative < 0.017 ng/mL (0.000-0.055) Urine Opiates Screen Neg (NEG) Urine Methadone Screen Neg (NEG) Urine Barbiturates Neg (NEG) Urine Phencyclidine Screen Neg (NEG) Urine Amphetamine/Methamphetamine Neg (NEG) Urine Benzodiazepines Screen Pos (NEG) Urine Cocaine Screen Neg (NEG) Urine Cannabinoids Screen Neg (NEG) Urine Ethyl Alcohol Neg (NEG) Test 04/07/18 16:28 04/07/18 21:01 04/07/18 22:51 04/08/18 00:38 Glucose (Fingerstick) 193 mg/dL (70-99) 432 mg/dL (70-99) 371 mg/dL (70-99) 231 mg/dL (70-99) Test 04/08/18 08:20 Glucose (Fingerstick) 303 mg/dL (70-99) Laboratory Tests Test 04/07/18 12:05 04/07/18 15:00 04/07/18 16:28 04/07/18 21:01 Glucose (Fingerstick) 223 mg/dL (70-99) 193 mg/dL (70-99) 432 mg/dL (70-99) Urine Opiates Screen Neg (NEG) Urine Methadone Screen Neg (NEG) Urine Barbiturates Neg (NEG) Urine Phencyclidine Screen Neg (NEG) Urine Amphetamine/Methamphetamine Neg (NEG) Urine Benzodiazepines Screen Pos (NEG) Urine Cocaine Screen Neg (NEG) Urine Cannabinoids Screen Neg (NEG) Urine Ethyl Alcohol Neg (NEG) Test 04/07/18 22:51 04/08/18 00:38 04/08/18 08:20 Glucose (Fingerstick) 371 mg/dL (70-99) 231 mg/dL (70-99) 303 mg/dL (70-99) Brief Hospital Course Ms. Mcmanus is a 57 old [sex] who presented with [ ]This is a pleasant 57 yo female is not on any meds and has not seen a doctor for many years, came to the emergency room because of SOA and chest pain, intermittent about 2 weeks ago. She also sounds to have some URI symptoms, postnasal discharge. Finished a course of Zithromax. Also complains of some leg edema and chest tightness that did not go away. NOt better post abx. Called by RN because of blood sugar 350s, no known diabetes, not on any meds. Plans were LHC by cardiology. Echo also done, results still pending. She is very anxious and is crying. Teary-eyed worried about her overall health. Blood pressure on the high side, he dimer mildly elevated 0.59. CBC is okay, BNP elevated at 2400 COURSE; LHC done no stents needed, echo 30% EF New diagnosis of systolic heart failure, being arranged for [facility] Many new cardiac meds needed and already written on scripts including Lasix, beta erica, TREVA inhibitor aspirin, and oral anticoagulants. I have provided all scripts Also new-onset diabetes with a blood sugar 300s and a hemoglobin A1c of 11.8 I started metformin and glyburide-creatinine okay. Contemplating Lantus 10:15 units daily at bedtime but she can start with these oral agents first and follow -up with PCP if there is a need for long-acting insulin 2 Notes today Patient seen and examined Consults performed cardiology Procedures performed LHC and transthoracic echo Discharge Information Condition at Discharge: Improved, Stable Disposition/Orders: D/C to Home Scheduled Aspirin (Aspirin Ec) 81 Mg Tablet.dr, 81 MG PO DAILYWBKFT for 30 Days, #30 Prescribed by: TREVOR LOERA on 04/08/18 1059 Atorvastatin Calcium (Atorvastatin Calcium) 40 Mg Tablet, 20 MG PO QHS for 30 Days, #15 Prescribed by: TREVOR LOERA on 04/08/18 1059 Furosemide (Lasix) 40 Mg Tablet, 1 TAB PO DAILY, #30 Ref 5 Prescribed by: TREVOR LOERA on 04/08/18 1059 Glyburide (Glyburide) 5 Mg Tablet, 5 MG PO BIDWMEALS for 30 Days, #60 Prescribed by: TREVOR LOERA on 04/08/18 1059 Metformin Hcl (Glucophage) 500 Mg Tablet, 500 MG PO BIDWMEALS for 30 Days, #60 Prescribed by: TREVOR LOERA on 04/08/18 1059 Metoprolol Succinate (Toprol Xl) 50 Mg Tab.er.24h, 50 MG PO DAILY for 30 Days, # 30 Prescribed by: TREVOR LOERA on 04/08/18 1059 Sacubitril/Valsartan (Entresto 24 mg-26 mg Tablet) 1 Each Tablet, 1 TAB PO BID for 30 Days, #60 Prescribed by: TREVOR LOERA on 04/08/18 1059 TREVOR LOERA MD Apr 08, 2018 11:01
--- NOTE | 2018-04-08 11:07 | PDOC ---
PULMONARY PROGRESS NOTES Subjective PT FEELS BETTER Vitals Vital Signs Date Time Temp Pulse Resp B/P (MAP) Pulse Ox O2 Delivery O2 Flow Rate FiO2 04/08/18 08:22 88 134/74 04/08/18 08:00 Room Air 04/08/18 07:00 97.7 16 97 2.0 97.7 ROS: No Nausea, No Chest Pain, No Abdominal Pain, No Increase Cough General: Alert Lungs: Clear Cardiovascular: S1, S2 Abdomen: Soft Neuro Exam: Alert Extremities: No Edema Skin: Warm Labs Laboratory Tests Test 04/06/18 19:47 04/06/18 20:17 04/06/18 21:11 04/07/18 06:00 Urine Collection Type Unknown Urine Color Yellow Urine Clarity Clear Urine pH 6.0 Urine Specific Cope 1.025 Urine Protein Negative mg/dL (NEG-TRACE) Urine Glucose (UA) >=1000 mg/dL (NEG) Urine Ketones (Stick) Negative mg/dL (NEG) Urine Blood Negative (NEG) Urine Nitrite Negative (NEG) Urine Bilirubin Negative (NEG) Urine Urobilinogen Dipstick 0.2 mg/dL (0.2 mg/dL) Urine Leukocyte Esterase Trace (NEG) Urine RBC 0 /HPF (0-2) Urine WBC 5-10 /HPF (0-4) Urine Squamous Epithelial Cells Few /LPF Urine Bacteria 0 /HPF (0-FEW) White Blood Count 6.8 x10^3/uL (4.0-11.0) Red Blood Count 4.34 x10^6/uL (3.50-5.40) Hemoglobin 13.4 g/dL (12.0-15.5) Hematocrit 39.0 % (36.0-47.0) Mean Corpuscular Volume 90 fL (79-100) Mean Corpuscular Hemoglobin 31 pg (25-35) Mean Corpuscular Hemoglobin Concent 34 g/dL (31-37) Red Cell Distribution Width 13.6 % (11.5-14.5) Platelet Count 245 x10^3/uL (140-400) Neutrophils (%) (Auto) 60 % (31-73) Lymphocytes (%) (Auto) 32 % (24-48) Monocytes (%) (Auto) 5 % (0-9) Eosinophils (%) (Auto) 2 % (0-3) Basophils (%) (Auto) 1 % (0-3) Neutrophils # (Auto) 4.1 x10^3uL (1.8-7.7) Lymphocytes # (Auto) 2.1 x10^3/uL (1.0-4.8) Monocytes # (Auto) 0.4 x10^3/uL (0.0-1.1) Eosinophils # (Auto) 0.1 x10^3/uL (0.0-0.7) Basophils # (Auto) 0.1 x10^3/uL (0.0-0.2) D-Dimer (Katerina) 0.59 ug/mlFEU (0.00-0.50) Sodium Level 138 mmol/L (136-145) 139 mmol/L (136-145) Potassium Level 3.6 mmol/L (3.5-5.1) 3.9 mmol/L (3.5-5.1) Chloride Level 102 mmol/L (98-107) 99 mmol/L (98-107) Carbon Dioxide Level 28 mmol/L (21-32) 26 mmol/L (21-32) Anion Gap 8 (6-14) 14 (6-14) Blood Urea Nitrogen 10 mg/dL (7-20) 13 mg/dL (7-20) Creatinine 0.7 mg/dL (0.6-1.0) 0.7 mg/dL (0.6-1.0) Estimated GFR (Cockcroft-Gault) 86.2 86.2 Glucose Level 306 mg/dL (70-99) 450 mg/dL (70-99) Calcium Level 8.9 mg/dL (8.5-10.1) 9.2 mg/dL (8.5-10.1) Troponin I Quantitative < 0.017 ng/mL (0.000-0.055) < 0.017 ng/mL (0.000-0.055) [id number]-Type Natriuretic Peptide 2433 pg/mL (0-124) Hemoglobin A1c 11.8 % (4.8-5.6) Magnesium Level 1.8 mg/dL (1.8-2.4) Total Bilirubin 1.0 mg/dL (0.2-1.0) Direct Bilirubin 0.2 mg/dL (0.0-0.2) Aspartate Amino Transf (AST/SGOT) 20 U/L (15-37) Alanine Aminotransferase (ALT/SGPT) 42 U/L (14-59) Alkaline Phosphatase 95 U/L (46-116) Total Protein 6.9 g/dL (6.4-8.2) Albumin 3.5 g/dL (3.4-5.0) Triglycerides Level 64 mg/dL (0-150) Cholesterol Level 167 mg/dL (0-200) LDL Cholesterol, Calculated 108 mg/dL (0-100) VLDL Cholesterol, Calculated 13 mg/dL (0-40) Non-HDL Cholesterol Calculated 121 mg/dL (0-129) HDL Cholesterol 46 mg/dL (40-60) Cholesterol/HDL Ratio 3.6 Thyroid Stimulating Hormone (TSH) 1.340 uIU/mL (0.358-3.74) Test 04/07/18 07:44 04/07/18 10:45 04/07/18 12:05 04/07/18 15:00 Glucose (Fingerstick) 375 mg/dL (70-99) 223 mg/dL (70-99) Troponin I Quantitative < 0.017 ng/mL (0.000-0.055) Urine Opiates Screen Neg (NEG) Urine Methadone Screen Neg (NEG) Urine Barbiturates Neg (NEG) Urine Phencyclidine Screen Neg (NEG) Urine Amphetamine/Methamphetamine Neg (NEG) Urine Benzodiazepines Screen Pos (NEG) Urine Cocaine Screen Neg (NEG) Urine Cannabinoids Screen Neg (NEG) Urine Ethyl Alcohol Neg (NEG) Test 04/07/18 16:28 04/07/18 21:01 04/07/18 22:51 04/08/18 00:38 Glucose (Fingerstick) 193 mg/dL (70-99) 432 mg/dL (70-99) 371 mg/dL (70-99) 231 mg/dL (70-99) Test 04/08/18 08:20 Glucose (Fingerstick) 303 mg/dL (70-99) Laboratory Tests Test 04/07/18 12:05 04/07/18 15:00 04/07/18 16:28 04/07/18 21:01 Glucose (Fingerstick) 223 mg/dL (70-99) 193 mg/dL (70-99) 432 mg/dL (70-99) Urine Opiates Screen Neg (NEG) Urine Methadone Screen Neg (NEG) Urine Barbiturates Neg (NEG) Urine Phencyclidine Screen Neg (NEG) Urine Amphetamine/Methamphetamine Neg (NEG) Urine Benzodiazepines Screen Pos (NEG) Urine Cocaine Screen Neg (NEG) Urine Cannabinoids Screen Neg (NEG) Urine Ethyl Alcohol Neg (NEG) Test 04/07/18 22:51 04/08/18 00:38 04/08/18 08:20 Glucose (Fingerstick) 371 mg/dL (70-99) 231 mg/dL (70-99) 303 mg/dL (70-99) Medications Active Scripts Medications Dose Route/Sig Max Daily Dose Days Date Category Lasix (Furosemide) 40 Mg Tablet 1 Tab PO DAILY 04/08/18 Rx Glyburide 5 Mg Tablet 5 Mg PO BIDWMEALS 30 04/08/18 Rx Glucophage (Metformin Hcl) 500 Mg Tablet 500 Mg PO BIDWMEALS 30 04/08/18 Rx Aspirin Ec (Aspirin) 81 Mg Tablet.dr 81 Mg PO DAILYWBKFT 30 04/08/18 Rx Entresto 24 mg-26 mg Tablet (Sacubitril/Valsartan) 1 Each Tablet 1 Tab PO BID 30 04/08/18 Rx Toprol Xl (Metoprolol Succinate) 50 Mg Tab.er.24h 50 Mg PO DAILY 30 04/08/18 Rx Atorvastatin Calcium 40 Mg Tablet 20 Mg PO QHS 30 04/08/18 Rx Impression . IMPRESSION: 1. Progressive dyspnea secondary to acute systolic heart failure. 2. Nonischemic cardiomyopathy, ejection fraction 30%. 3. Chronic obstructive pulmonary disease, unknown FEV1. 4. Tobacco dependence, in remission. Plan . OK TO D/C FOLLOW UP IN 2-4 WEEKS 6 MIN WALK 1. Pulmonary status appears to be compensated. The patient will undergo a 6-minute walk prior to discharge. 2. Continue p.r.n. ProAir. 3. Outpatient pulmonary function testing. 4. D/W CARD OK TO DC 5. Repeat CT chest in 6 months, followup on the abnormal prominent lateral aortic lymph node. MONICA CRAWLEY MD Apr 08, 2018 11:07
[2018-04-08 11:50] VITALS: BP 116/61
--- NOTE | 2018-04-08 12:38 | PDOC ---
GAYLA GRESHAM CUSTOMS MANAGER 04/08/18 1238: CARDIO Progress Notes Date and Time Date of Service 04/08/2018 Time of Evaluation 1200 Subjective Subjective: No Chest Pain, No shortness of breath, No Palpitations Vitals Vitals Vital Signs Date Time Temp Pulse Resp B/P (MAP) Pulse Ox O2 Delivery O2 Flow Rate FiO2 04/08/18 11:50 97.5 80 16 116/61 (79) 95 Nasal Cannula 2.0 97.5 Weight Weight [ ] Input and Output Intake and Output Intake and Output 04/08/18 07:00 Intake Total 1030 ml Output Total 1900 ml Balance -870 ml Intake Oral 1030 ml Output Urine Total 1900 ml # Voids 1 Laboratory Labs Laboratory Tests Test 04/07/18 15:00 04/07/18 16:28 04/07/18 21:01 04/07/18 22:51 Urine Opiates Screen Neg (NEG) Urine Methadone Screen Neg (NEG) Urine Barbiturates Neg (NEG) Urine Phencyclidine Screen Neg (NEG) Urine Amphetamine/Methamphetamine Neg (NEG) Urine Benzodiazepines Screen Pos (NEG) Urine Cocaine Screen Neg (NEG) Urine Cannabinoids Screen Neg (NEG) Urine Ethyl Alcohol Neg (NEG) Glucose (Fingerstick) 193 mg/dL (70-99) 432 mg/dL (70-99) 371 mg/dL (70-99) Test 04/08/18 00:38 04/08/18 08:20 04/08/18 11:35 Glucose (Fingerstick) 231 mg/dL (70-99) 303 mg/dL (70-99) 236 mg/dL (70-99) Physical Exam HEENT: Neck Supple W Full Motion Chest: Symmetric LUNGS: Clear to Auscultation Heart: S1S2, RRR (SR with no significant ectopies) Abdomen: Soft N/T Extremities: No Calf Tenderness Neurology: alert, oriented, follow commands Assessment Assessment 1. Acute CHF combined diastolic/systolic dysfunction: compensated 2. Chest pain: likely from bronchospasm and CHF. 3. NICM: new. S/P LHC no significant coronary disease 4. LBBB: New. no prior for comparison. Trop series nml. 5. AECOPD: new. better. per pulmonary 5. HTN: new controlled 6. DM2: new. Per PCP 7. HLP: new Recommendations 1. ASA 81 mg for primary prevention. Statin. Entresto ( 1mo samples provided). BMP/Mg prior to CHF clinic appt in 2 weeks. Toprol XL. 2. Continue with lasix therapy. K supplement. DM therapy per PCP. May start metformin tomorrow PM. 3. Lifevest upon DC. Will reeval in 3 months for AICD considerationf 4. 2L FR, daily wt. Home BP monitoring. 5. Follow up with primary special librarian in 4-6 weeks. NATE YIN MD 04/09/18 0757: CARDIO Progress Notes Assessment Assessment Patient seen and examined 04/08/18. Agree with ASSOCIATE's assessment and plan Cardiac cath did not show any significant CAD Agree with Lifevest for non ischemic cardiomyopathy and repeat 2D echo in 3 months after optimal medical therapy GAYLA GRESHAM APRN Apr 08, 2018 12:38 NATE YIN MD Apr 09, 2018 07:57
[2018-04-08] MEDS ORDERED: POTASSIUM CHLORIDE 10 MEQ TABLET.ER. PO SCH (13:00)
[2018-04-08] MEDS ORDERED: glyBURIDE 5 MG TABLET PO SCH (17:00)
[2018-04-08] MEDS ORDERED: INSULIN GLARGINE 300 UNITS/3 ML INSULN.PEN. SQ SCH (21:00)
[2018-04-09] MEDS ORDERED: metFORMIN 500 MG TABLET PO SCH (17:00)
== END 2018-04-08 15:32 | disposition home or self-care (01) | DRG 286 ==
LOC: ER 19:12 → 2 NORTH 22:50 → OBSVTOIN 04-07 13:12
PROVIDERS: ADMIT Internal Medicine; ATTEND Internal Medicine
PROC: 4A023N7 Measurement of Cardiac Sampling and Pressure, Left Heart, Percutaneous Approach (ICD-10-PCS; principal; 2018-04-07)
PROC: B2151ZZ Fluoroscopy of Left Heart using Low Osmolar Contrast (ICD-10-PCS; 2018-04-07)
PROC: B2111ZZ Fluoroscopy of Multiple Coronary Arteries using Low Osmolar Contrast (ICD-10-PCS; 2018-04-07)
DX: I20.0 Unstable angina (principal); I50.43 Acute on chronic combined systolic (congestive) and diastolic (congestive) heart failure; J44.1 Chronic obstructive pulmonary disease with (acute) exacerbation; I42.9 Cardiomyopathy, unspecified; I11.0 Hypertensive heart disease with heart failure; E11.65 Type 2 diabetes mellitus with hyperglycemia; F17.201 Nicotine dependence, unspecified, in remission; E78.5 Hyperlipidemia, unspecified; F41.9 Anxiety disorder, unspecified; I44.7 Left bundle-branch block, unspecified; J06.9 Acute upper respiratory infection, unspecified; Z79.84 Long term (current) use of oral hypoglycemic drugs; Z82.49 Family history of ischemic heart disease and other diseases of the circulatory system; Z79.899 Other long term (current) drug therapy; Z88.8 Allergy status to other drugs, medicaments and biological substances
CPT/HCPCS: 36415; 71045; 71275; 80048; 80061; 80076; 80307; 81001; 82962; 83036; 83735; 83880; 84443; 84484; 85025; 85379; 87086; 90471; 90756; 93005; 93306; 93458; 94618; 94640; 94760; 96374; 96375; 99152; C1769; C1892; G0378; G0379; J1644; J1815; J1940; J2250; J3010; J3490; J7512; J7620; Q9967; 99285-25; G0479; Q2035